=== PATIENT | male | born 1945 | race Caucasian/White ===

== ENCOUNTER 2021-05-03 18:57 | Emergency (ER) | payer MEDICARE, SELFPAY ==
--- NOTE | ~2021-05-03 | XR_ITS ---
EXAMINATION: XR CHEST CLINICAL INFORMATION: Cough. COMPARISON: Chest radiograph dated from 11/10/2018. TECHNIQUE: 2 views of the chest were obtained. FINDINGS: Normal appearance of the cardiomediastinal silhouette. Mild asymmetric elevation of the left hemidiaphragm with subsegmental atelectasis in the left lower lobe. No focal infiltrates. No pleural effusion or pneumothorax. No acute osseous abnormalities. XR/XR chest 2V IMPRESSION: Mild subsegmental atelectasis in the left lower lobe. Otherwise, clear lungs.
--- NOTE | 2021-05-03 18:58 | ECG_ITS ---
Test Reason : DIZZINESS Blood Pressure : / mmHG Vent. Rate : 048 BPM Atrial Rate : 048 BPM P-R Int : 158 ms QRS Dur : 094 ms QT Int : 466 ms P-R-T Axes : 028 037 040 degrees QTc Int : 416 ms Poor data quality, interpretation may be adversely affected Sinus bradycardia Cannot rule out Anterior infarct , age undetermined Abnormal ECG When compared with ECG of 10-NOV-2018 21:24, No significant change was found Referred By: Lisa Mast Electronically Signed By:
[2021-05-03 19:03] VITALS: BP 177/67; PULSE 52; RESP 16; TEMP 36; O2SAT 98; BMI 26.2
[2021-05-03 19:33] LABS: MANUAL DIFF FLAG NO
[2021-05-03 19:35] LABS: Basophils Absolute Auto 0.1 X10*3/uL (0.0-0.2); Basophils Percent Auto 0.8 % (0-2); Eosinophils Absolute Auto 0.1 X10*3/uL (0.0-0.4); Eosinophils Percent Auto 1.2 % (0-4); Hematocrit 42.4 % (42.0-52.0); Hemoglobin 14.5 g/dl (14.0-18.0); Imm Gran Abs Auto 0.01 X10*3/uL (0.00-0.03); Imm Gran Pct Auto 0.1 % (0.0-0.4); Lymphocytes Absolute Auto 4.3 X10*3/uL (1.2-4.9); Lymphocytes Percent Auto 46.6 % (20-40); Mean Corpuscular HGB Conc 34.2 g/dl (31.0-36.0); Mean Corpuscular Hemoglobin 29.4 pg (27.0-33.0); Mean Platelet Volume 10.5 fL (9.4-12.4); Monocytes Absolute Auto 0.8 X10*3/uL (0.1-1.2); Monocytes Percent Auto 8.3 % (2-11); Platelet Count 250 X10*3/uL (160-400); Red Blood Count 4.93 X10*6/uL (4.60-5.80); Red Cell Distribution Width 12.3 % (11.0-16.0); White Blood Count 9.2 X10*3/uL (4.8-10.8)
[2021-05-03 19:49] LABS: Alanine Aminotransferase 27 U/L (0-40); Alkaline Phosphatase 67 U/L (39-117); Anion Gap 11 (12-20); Aspartate Amino Transferase 21 U/L (5-37); Bilirubin Total 0.5 mg/dL (0.0-1.0); Blood Urea Nitrogen 19 mg/dL (9-16); Calcium 9.7 mg/dL (8.4-10.2); Carbon Dioxide 25 mmol/L (22-29); Chloride 106 mmol/L (96-108); Estimated Glomerular Filt Rate > 60; Glucose Random 138 mg/dL (60-115); Potassium 3.9 mmol/L (3.3-5.1); Sodium 138 mmol/L (135-145); Total Protein 6.9 g/dL (6.5-8.0)
[2021-05-03 19:55] LABS: Troponin-I High Sensitivity < 3.5 ng/L (<3.5-35.0)
[2021-05-03 20:43] VITALS: BP 154/68; PULSE 49; PULSE 51; RESP 14; TEMP 36.5; O2SAT 95
[2021-05-03 20:44] VITALS: BP 138/69; PULSE 52
[2021-05-03 20:45] VITALS: BP 145/77; PULSE 59
--- NOTE | 2021-05-03 21:01 | PC.NURSE ---
pt a&ox3, vss, pt passed swallow screen, orthostatic bp completed with tech, will continue to monitor.
[2021-05-03 21:08] LABS: Thyroid Stimulating Hormone 3.58 uIU/mL (0.32-4.0)
[2021-05-03 21:54] LABS: COVID-19 Test Negative (Negative)
[2021-05-03 22:00] VITALS: BP 176/75; PULSE 49; RESP 20; TEMP 36.4; O2SAT 100
--- NOTE | 2021-05-03 22:16 | ED_ITS ---
HPI - General Adult General Chief complaint: Dizziness Stated complaint: feeling clammy, cold Time Seen by Provider: 05/03/21 18:58 Source: patient Mode of arrival: ambulatory History of Present Illness HPI narrative: This is a 75-year-old male with history gout who presents with onset this morning a warm, flushed feeling that was then followed by significant perspiration on his arms and upper torso. This was not associated with nausea, shortness of breath, chest pain/palpitations, back pain, perioral tingling, but patient reports that he had a headache without visual/speech disturbances and is unsure whether not he experienced any ear ringing. Patient states that he felt unsteady but this occurred while he was sitting at the computer looking up things on the Internet. He then states he took a Claritin, slept for 4-1/2 hours, and got up and felt well, and a it is dinner. He states that he had a recurrence of the symptoms while watching TV. He otherwise denies any night sweats, unexplained weight loss, abdominal discomfort, new cough, and he states he is fully vaccinated against COVID-19. Related Data Allergies Allergy/AdvReac Type Severity Reaction Status Date / Time lactose [LACTOSE] Allergy Unknown DIARRHEA Verified 05/03/21 19:02 rosuvastatin [From AdvReac Unknown PANCREATITI Verified 05/03/21 19:02 CRESTOR] S Review of Systems Verdana 4l Review of Systems: Verdana 4d Pertinent positives and Verdana 4d negatives as stated in HPI 10 point review of systems is otherwise negative. Verdana 4d PMFSH Past Medical History Source: nursing notes reviewed Social History Social History Alcohol intake: never Patient Tobacco Use Status: Never used Tobacco Substance Use Type: Marijuana Substance Use Frequency: Occasionally Substance Use Frequency Other:: Uses medical marijuana edibles for headaches. Advance Directives: No Advance Directives Information Provided: Yes Physical Exam Verdana 4l Vital Signs: Verdana 4d Verdana 4d Vital Signs: Verdana 4d Verdana 4Bd Last Vital Signs Verdana 4d Online Merchandising Manager New 4d Online Merchandising Manager New 4d Temp 97.5 F 05/03/21 22:00 Online Merchandising Manager New 4d Pulse 49 L 05/03/21 22:00 Online Merchandising Manager New 4d Resp 20 05/03/21 22:00 BP 176/75 H 05/03/21 22:00 Pulse Ox 100 05/03/21 22:00 BMI result Body Mass Index 26.2 VITAL SIGNS: Reviewed. GENERAL: Well developed, well nourished, in no acute distress. HEAD: Normocephalic/atraumatic EYES: PERRLA, EOMI intact without pain, no nystagmus EARS: Ext canals without abnormality, TMs non-bulging and non-erythematous NOSE: Nares patent bilateral OROPHARYNX: no oral lesions noted, posterior pharynx clear NECK: Supple, no adenopathy LUNGS: Normal breath sounds. No adventitious sounds or accessory muscle use. SpO2<100> CARDIOVASCULAR: Regular rate and rhythm without noted murmurs, no JVD or lower extremity edema. ABDOMEN: Soft, non-tender, non-distended with bowel sounds. MUSCULOSKELETAL: No tenderness, deformities, or effusions noted on gross inspection. EXTREMITIES: No cyanosis, clubbing or edema. SKIN: Inspection of the skin reveals no rashes NEUROLOGIC: Alert and oriented x 4. Strength and sensation to light touch were grossly intact x 4, otherwise nonfocal Course Course Course Narrative: 75-year-old male with history and clinical presentation suggestive of vasomotor- like symptoms as patient was not exerting himself/there was no position change, and there is no evidence of infection/anemia. Orthostatics are negative, EKG does not show obvious arrhythmia. Review of all investigations otherwise negative for acute findings. No clinical concern for neurologic dysfunction. All this was discussed extensively with the patient at bedside and he was strongly encouraged to follow-up with his primary care provider for further workup/investigations as indicated. Medical Decision Making Lab Data Result diagrams: 05/03/21 19:28 05/03/21 19:28 Labs: Lab Results 05/03/21 05/03/21 05/03/21 Range/Units 19:28 19:28 19:28 WBC 9.2 (4.8-10.8) X10*3/uL RBC 4.93 (4.60-5.80) X10*6/uL Hgb 14.5 (14.0-18.0) g/dl Hct 42.4 (42.0-52.0) % MCV 86.0 (80.0-98.0) fL MCH 29.4 (27.0-33.0) pg MCHC 34.2 (31.0-36.0) g/dl RDW 12.3 (11.0-16.0) % Plt Count 250 (160-400) X10*3/uL MPV 10.5 (9.4-12.4) fL Immature Gran % (Auto) 0.1 (0.0-0.4) % Neut % (Auto) 43.0 L (45-73) % Lymph % (Auto) 46.6 H (20-40) % [place] % (Auto) 8.3 (2-11) % Eos % (Auto) 1.2 (0-4) % Baso % (Auto) 0.8 (0-2) % Lymph # (Auto) 4.3 (1.2-4.9) X10*3/uL [place] # (Auto) 0.8 (0.1-1.2) X10*3/uL Eos # (Auto) 0.1 (0.0-0.4) X10*3/uL Baso # (Auto) 0.1 (0.0-0.2) X10*3/uL Abs Immat Gran (auto) 0.01 (0.00-0.03) X10*3/uL Absolute Neuts (auto) 4.0 (2.0-8.3) x10*3/uL Absolute Nucleated RBC 0.000 (0.0-0.012) X10*3/uL Nucleated RBC % (auto) 0.0 (0.0-0.2) /100WBC Sodium 138 (135-145) mmol/L Potassium 3.9 (3.3-5.1) mmol/L Chloride 106 (96-108) mmol/L Carbon Dioxide 25 (22-29) mmol/L Anion Gap 11 L (12-20) BUN 19 H (9-16) mg/dL Creatinine 0.88 (0.5-1.4) mg/dL Estim Creat Clear Calc 76.0 Estimated GFR > 60 Random Glucose 138 H (60-115) mg/dL Calcium 9.7 (8.4-10.2) mg/dL Total Bilirubin 0.5 (0.0-1.0) mg/dL AST 21 (5-37) U/L ALT 27 (0-40) U/L Alkaline Phosphatase 67 (39-117) U/L Troponin I High Sens < 3.5 (<3.5-35.0) ng/L Total Protein 6.9 (6.5-8.0) g/dL Albumin 4.0 (3.5-5.0) g/dL TSH 3.58 (0.32-4.0) uIU/mL COVID-19 (JESSIE) (Negative) COVID-19 Clin Com 05/03/21 Range/Units 21:34 WBC (4.8-10.8) X10*3/uL RBC (4.60-5.80) X10*6/uL Hgb (14.0-18.0) g/dl Hct (42.0-52.0) % MCV (80.0-98.0) fL MCH (27.0-33.0) pg MCHC (31.0-36.0) g/dl RDW (11.0-16.0) % Plt Count (160-400) X10*3/uL MPV (9.4-12.4) fL Immature Gran % (Auto) (0.0-0.4) % Neut % (Auto) (45-73) % Lymph % (Auto) (20-40) % [place] % (Auto) (2-11) % Eos % (Auto) (0-4) % Baso % (Auto) (0-2) % Lymph # (Auto) (1.2-4.9) X10*3/uL [place] # (Auto) (0.1-1.2) X10*3/uL Eos # (Auto) (0.0-0.4) X10*3/uL Baso # (Auto) (0.0-0.2) X10*3/uL Abs Immat Gran (auto) (0.00-0.03) X10*3/uL Absolute Neuts (auto) (2.0-8.3) x10*3/uL Absolute Nucleated RBC (0.0-0.012) X10*3/uL Nucleated RBC % (auto) (0.0-0.2) /100WBC Sodium (135-145) mmol/L Potassium (3.3-5.1) mmol/L Chloride (96-108) mmol/L Carbon Dioxide (22-29) mmol/L Anion Gap (12-20) BUN (9-16) mg/dL Creatinine (0.5-1.4) mg/dL Estim Creat Clear Calc Estimated GFR Random Glucose (60-115) mg/dL Calcium (8.4-10.2) mg/dL Total Bilirubin (0.0-1.0) mg/dL AST (5-37) U/L ALT (0-40) U/L Alkaline Phosphatase (39-117) U/L Troponin I High Sens (<3.5-35.0) ng/L Total Protein (6.5-8.0) g/dL Albumin (3.5-5.0) g/dL TSH (0.32-4.0) uIU/mL COVID-19 (JESSIE) Negative (Negative) COVID-19 Clin Com See Note ECG Data Attestation: I personally reviewed and interpreted this ECG as follows: Interpretation: Sinus bradycardia, HR-47, no STEMI, LA/QRS/QTC are within normal limits Discharge Plan Discharge Clinical Impression: Vasomotor flushing, Vasomotor headache Patient Disposition: Home, Self-Care Additional Instructions: Follow-up with your primary care provider. Return to the ER for worsening symptoms. Referrals: Ree Cordero MD [Primary Care Provider] - 2 days
--- NOTE | 2021-05-03 22:18 | PC.NURSE ---
pt a&ox3, urine sample collected, vss.
[2021-05-03 22:22] LABS: Appearance Urine CLEAR; Color Urine YELLOW; Glucose Urine UA NEG (NEG); Leukocyte Esterase Urine NEG (NEG); Nitrite Urine NEG (NEG); PH 5.5 (5.0-8.0); Specific Gravity - Urine >= 1.030 (1.005-1.025); Urine Blood NEG (NEG); Urine Ketones NEG (NEG); Urine Protein NEG (NEG-TRACE)
[2021-05-03 22:28] LABS: RBC Urine 0 /HPF (0); WBC Urine 0 /HPF (0-4)
== END 2021-05-03 22:40 | disposition home or self-care (01) ==
PROVIDERS: Emergency Provider Student in an Organized Health Care Education/Training Program; PCP Family Medicine
DX: R51.9 Headache, unspecified (principal); R23.2 Flushing; Z20.822 Contact with and (suspected) exposure to COVID-19; F12.90 Cannabis use, unspecified, uncomplicated
CPT/HCPCS: 36415; 71046; 80053; 81001; 84443; 84484; 85025; 87635; 93005; 99283; 99285

== ENCOUNTER 2023-12-22 07:54 | Day surgery (SDC) | payer MEDICARE, SELFPAY ==
[2023-12-18 08:27] VITALS: BMI 26.3
[2023-12-22] MEDS: Tetracaine HCl/PF 0.5% Oph Sol 4 ML DROPS 1 DROP EYE-LEFT (08:22)
[2023-12-22] MEDS: Cyclopentolate 1 % Ophth Sol 2 ML DRPBTL 1 DROP EYE-LEFT ×3 (08:23→08:36)
[2023-12-22] MEDS: Ketorolac Tromethamine 0.5% Op 10 ML DROPS 1 DROP EYE-LEFT ×3 (08:23→08:35)
[2023-12-22] MEDS: Tropicamide 1 % Ophth Sol 3 ML BTL 1 DROP EYE-LEFT ×3 (08:23→08:36)
[2023-12-22] MEDS: Phenylephrine HCL 2.5% Oph SoL 2 ML BOTTLE 1 DROP EYE-LEFT ×3 (08:23→08:35)
[2023-12-22] MEDS: Lactated Ringers 500 ML 50 ML IV (08:24)
[2023-12-22 08:38] VITALS: BP 144/78; PULSE 58; RESP 18; TEMP 36.7; O2SAT 97
--- NOTE | 2023-12-22 08:55 | HO.ANESPROP2 ---
Documented by User: Janet Guo NP 12/18/23 14:29 HPI - Anesthesia Eval Consult details Narrative: 78yo M for Left Cataract Multifocal with IOL Insertion No previous cataract on record PMFSH Past Medical History Medical History Elevated blood pressure reading without diagnosis of hypertension Family history of malignant melanoma Nocturia History of headache IBS (irritable bowel syndrome) Cyst of oral soft tissue Migraine Anemia Chronic tophaceous gout Gout Hyperlipidemia Surgical History Surgical History H/O colonoscopy Social History Social History Are you a primary primary care nurse practitioner to a significant other at home: No Do you presently have visiting nurse or other home services: No Alcohol intake: never Patient Tobacco Use Status: Former Tobacco user Use of substances other than those prescribed or required for medical reasons: No Substance Use Type: Marijuana Are you DNR?: No Advance Directives: No Advance Directives Information Provided: Yes Advance Directives on File: No Recently lost weight without trying: No Nutrition Risks: No Nutritional Risk Meds Allergies Allergy/AdvReac Type Severity Reaction Status Date / Time lactose [LACTOSE] Allergy Unknown DIARRHEA Verified 12/22/23 08:40 acetazolamide Allergy Headache Verified 12/22/23 08:40 allopurinol Allergy Diarrhea Verified 12/22/23 08:40 amlodipine Allergy Swelling Verified 12/22/23 08:40 influenza virus vaccine, Allergy Fever Verified 12/22/23 08:40 specific lisinopril Allergy Unknown Verified 12/22/23 08:40 Sulfa (Sulfonamide Allergy Unknown Verified 12/22/23 08:40 Antibiotics) Home Medications ?Medication ?Instructions ?Recorded ?Confirmed ?Last Taken ?Type acidophilus 100 million 1 cap PO DAILY 12/18/23 12/18/23 Unknown History cell-pectin, citrus 10 mg capsule ascorbic acid (vitamin C) 100 mg 100 mg PO DAILY 12/18/23 12/18/23 Unknown History tablet (Vitamin C) calcium carbonate (Tums) 200 mg PO BID 12/18/23 12/18/23 Unknown History cholecalciferol (vitamin D3) 25 25 mcg PO DAILY 12/18/23 12/18/23 Unknown History mcg (1,000 unit) capsule (Vitamin D3) coenzyme Q10 10 mg capsule (Co 10 mg PO TID 12/18/23 12/18/23 Unknown History Q-10) cyanocobalamin (vitamin B-12) 50 50 mcg PO DAILY 12/18/23 12/18/23 Unknown History mcg tablet (Vitamin B-12) flaxseed oil 1,000 mg capsule 1,000 mg PO DAILY 12/18/23 12/18/23 Unknown History glucosamine sulf dipot cap PO 12/18/23 Unknown History chlr,msm,chond 550 mg-C 30 mg-melinda 1 mg capsule (Glucosamine Chondroitin) ibuprofen 600 mg tablet 600 mg PO Q8H PRN Pain 12/18/23 12/18/23 Unknown History omega 9-ifl-vth-fish oil 1,000 mg 1 cap PO DAILY 12/18/23 12/18/23 Unknown History (120 mg-180 mg) capsule (Fish Oil) red yeast rice 600 mg capsule 600 mg PO DAILY 12/18/23 12/18/23 Unknown History colchicine 0.6 mg tablet 0.6 mg PO DAILY 12/22/23 12/22/23 12/22/23 History Exam Height,Weight and Vital Signs: Height 5 ft 9 in Weight 80.739 kg Assessment and Plan Assessment Anesthesia Assessment: Chart Reviewed Documented by User: Charline Kate DO 12/22/23 08:57 HPI - Anesthesia Eval Consult details Narrative: 78yo M for Left Cataract Multifocal with IOL Insertion No previous cataract on record 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 PMFSH Past Medical History Medical History Elevated blood pressure reading without diagnosis of hypertension Family history of malignant melanoma Nocturia History of headache IBS (irritable bowel syndrome) Cyst of oral soft tissue Migraine Anemia Chronic tophaceous gout Gout Hyperlipidemia Family History Family history of problems with anesthesia: No Surgical History Surgical History H/O colonoscopy History of Problems with Anesthesia: No Social History Social History Are you a primary primary care nurse practitioner to a significant other at home: No Do you presently have visiting nurse or other home services: No Alcohol intake: never Patient Tobacco Use Status: Former Tobacco user Use of substances other than those prescribed or required for medical reasons: No Substance Use Type: Marijuana Are you DNR?: No Advance Directives: No Advance Directives Information Provided: Yes Advance Directives on File: No Recently lost weight without trying: No Nutrition Risks: No Nutritional Risk Meds Allergies Allergy/AdvReac Type Severity Reaction Status Date / Time lactose [LACTOSE] Allergy Unknown DIARRHEA Verified 12/22/23 08:40 acetazolamide Allergy Headache Verified 12/22/23 08:40 allopurinol Allergy Diarrhea Verified 12/22/23 08:40 amlodipine Allergy Swelling Verified 12/22/23 08:40 influenza virus vaccine, Allergy Fever Verified 12/22/23 08:40 specific lisinopril Allergy Unknown Verified 12/22/23 08:40 Sulfa (Sulfonamide Allergy Unknown Verified 12/22/23 08:40 Antibiotics) Home Medications ?Medication ?Instructions ?Recorded ?Confirmed ?Last Taken ?Type acidophilus 100 million 1 cap PO DAILY 12/18/23 12/18/23 Unknown History cell-pectin, citrus 10 mg capsule ascorbic acid (vitamin C) 100 mg 100 mg PO DAILY 12/18/23 12/18/23 Unknown History tablet (Vitamin C) calcium carbonate (Tums) 200 mg PO BID 12/18/23 12/18/23 Unknown History cholecalciferol (vitamin D3) 25 25 mcg PO DAILY 12/18/23 12/18/23 Unknown History mcg (1,000 unit) capsule (Vitamin D3) coenzyme Q10 10 mg capsule (Co 10 mg PO TID 12/18/23 12/18/23 Unknown History Q-10) cyanocobalamin (vitamin B-12) 50 50 mcg PO DAILY 12/18/23 12/18/23 Unknown History mcg tablet (Vitamin B-12) flaxseed oil 1,000 mg capsule 1,000 mg PO DAILY 12/18/23 12/18/23 Unknown History glucosamine sulf dipot cap PO 12/18/23 Unknown History chlr,msm,chond 550 mg-C 30 mg-melinda 1 mg capsule (Glucosamine Chondroitin) ibuprofen 600 mg tablet 600 mg PO Q8H PRN Pain 12/18/23 12/18/23 Unknown History omega 5-ytm-jaj-fish oil 1,000 mg 1 cap PO DAILY 12/18/23 12/18/23 Unknown History (120 mg-180 mg) capsule (Fish Oil) red yeast rice 600 mg capsule 600 mg PO DAILY 12/18/23 12/18/23 Unknown History colchicine 0.6 mg tablet 0.6 mg PO DAILY 12/22/23 12/22/23 12/22/23 History Exam Exam Date and Time: 12/22/23 0850 Height,Weight and Vital Signs: Height 5 ft 9 in Weight 80.739 kg Vital Signs Temperature 98.1 F 12/22/23 08:38 Pulse Rate 58 12/22/23 08:38 Respiratory Rate 18 12/22/23 08:38 Blood Pressure 144/78 H 12/22/23 08:38 Pulse Oximetry 97 12/22/23 08:38 Oxygen Delivery Method Room Air 12/22/23 08:38 Temperature 98.1 F 12/22/23 08:38 Pulse Rate 58 12/22/23 08:38 Respiratory Rate 18 12/22/23 08:38 Blood Pressure 144/78 H 12/22/23 08:38 Pulse Oximetry 97 12/22/23 08:38 Oxygen Delivery Method Room Air 12/22/23 08:38 Airway Mallampati Class: I TM Dist: >3cm Neck ROM: Full Loose/Missing/Broken Teeth: Yes (some missing teeth but nothing loose or broken) Heart: S1S2 Lungs: CTAB Assessment and Plan Assessment Anesthesia Assessment: Anesthesia Plan Discussed and Chart Reviewed Final Anesthetic Review Family History of Problems with Anesthesia: No History of Problems with Anesthesia: No NPO: Yes ASA Class: II Final Preanesthetic Review: No Changes in Pt Med Stat, Meds/Allgs Chart Reviewed, Consent Obtained/Reviewed and Anes Risks/Benef Reviewed Patient Risk: Low Procedure Risk: Low Anesthetic Plan Anesthetic Plan: MAC: and Agree w/ Assess. and Plan Disposition: Standard PACU
--- NOTE | 2023-12-22 09:14 | MHC.SHP ---
Pre-Procedural Eval Section A - 24 Hr Update-Section A only Date of Service: 12/22/23 The patient is an INPATIENT: No Changes since office visit: No Cold of Flu in the past 2 weeks, No New Medical Problems, No Changes in Medication and No Patient answered all questions The patient has been examined within 24 hours of the surgical procedure. The History & Physical has been completed within 30 days and I have reviewed it.: Yes Section B - Complete if H&P > 30 days Chief Complaint: Age-related nuclear cataract, left eye Allergies: Allergies Allergy/AdvReac Type Severity Reaction Status Date / Time lactose [LACTOSE] Allergy Unknown DIARRHEA Verified 12/22/23 08:40 acetazolamide Allergy Headache Verified 12/22/23 08:40 allopurinol Allergy Diarrhea Verified 12/22/23 08:40 amlodipine Allergy Swelling Verified 12/22/23 08:40 influenza virus vaccine, Allergy Fever Verified 12/22/23 08:40 specific lisinopril Allergy Unknown Verified 12/22/23 08:40 Sulfa (Sulfonamide Allergy Unknown Verified 12/22/23 08:40 Antibiotics) Plan Diagnosis/Plan: Unchanged I have reviewed the history and physical and performed a pertinent physical examination on my patient. No changes have occurred unless specified. Time Spent With Patient Time: Total time managing care of this patient today ____ minutes.
--- NOTE | 2023-12-22 09:14 | HO.PNOPHT ---
Ophthalmology Procedure Procedure Date of Service: 12/22/23 Ophthalmology Viscoelastic: Healon Duet Dual Pack Pro Ophthalmology Lenses: Other ([id number] 14.5) Procedure Notes: PREOPERATIVE DIAGNOSIS: Decreased visual acuity left eye secondary to cataract POSTOPERATIVE DIAGNOSIS: Same PROCEDURE: Left cataract extraction with intraocular lens insertion SURGEON: Andres Mendieta M.D. ANESTHESIA: Topical/MAC ESTIMATED BLOOD LOSS: None COMPLICATIONS: None After obtaining informed consent, the patient was brought to the operation room suite and placed in the supine position. After adequate sedation per anesthesia, topical drops of Tetracaine were given to the left eye. The eye was then prepped and draped in the usual sterile fashion. The operating room microscope was then positioned over the operative eye and a lid speculum placed. A paracentesis was created. Viscoelastic was then instilled into the anterior chamber. A three plane incision was then created temporally, utilizing a 2.85 mm keratome. Capsulotomy forceps were then utilized to create a circular tear capsulotomy. Hydrodissection and hydrodelineation were carried out until adequate mobilization of the nucleus occurred. Phacoemulsification was then utilized to remove the dense central nucleus followed by removal of the cortical material utilizing the automated aspiration irrigation unit. Viscoat elastic was instilled into the posterior capsular bag followed by placement of a posterior chamber intraocular lens without difficulty. The residual Viscoat elastic was then removed utilizing the automated IA machine. The wound was check and found to be watertight. The patient tolerated the procedure well and the lid speculum was removed. Intracameral injection of Vigamox 0.1 mL followed by a subtenon injection of Kenalog-40 0.2 mL were administered. The patient will be seen in the a.m.
[2023-12-22 10:01] VITALS: BP 155/66; PULSE 54; RESP 18; TEMP 36.2; O2SAT 98
== END 2023-12-22 10:03 | disposition home or self-care (01) ==
PROVIDERS: PCP Family Medicine; Visit Provider Ophthalmology
PROC: (CPT 66984; principal; 2023-12-22 09:30)
DX: H25.12 Age-related nuclear cataract, left eye (principal); H54.7 Unspecified visual loss; H43.393 Other vitreous opacities, bilateral; D64.9 Anemia, unspecified; M1A.9XX1 Chronic gout, unspecified, with tophus (tophi); E78.5 Hyperlipidemia, unspecified; R03.0 Elevated blood-pressure reading, without diagnosis of hypertension; G43.909 Migraine, unspecified, not intractable, without status migrainosus; Z79.1 Long term (current) use of non-steroidal anti-inflammatories (NSAID); Z79.899 Other long term (current) drug therapy; Z88.8 Allergy status to other drugs, medicaments and biological substances; Z88.2 Allergy status to sulfonamides; Z88.7 Allergy status to serum and vaccine
CPT/HCPCS: 66984; J2250; J3301; V2787

== ENCOUNTER 2024-01-05 08:35 | Day surgery (SDC) | payer MEDICARE, SELFPAY ==
[2023-12-18 08:35] VITALS: BMI 26.3
--- NOTE | 2024-01-01 14:27 | P.CONAN_ITS ---
HPI - Anesthesia Eval Consult details Narrative: 78yo M for Right Cataract Multifocal with IOL Insertion Left eye 11/2023: No meds recorded PMFSH Past Medical History Medical History Elevated blood pressure reading without diagnosis of hypertension Family history of malignant melanoma Nocturia History of headache IBS (irritable bowel syndrome) Cyst of oral soft tissue Migraine Anemia Chronic tophaceous gout Gout Hyperlipidemia Family History Family history of problems with anesthesia: No Surgical History Surgical History H/O colonoscopy History of Problems with Anesthesia: No Social History Social History Are you a primary career development coordinator/teacher to a significant other at home: No Do you presently have visiting nurse or other home services: No Alcohol intake: never Patient Tobacco Use Status: Former Tobacco user Use of substances other than those prescribed or required for medical reasons: No Substance Use Type: Marijuana Are you DNR?: No Advance Directives: No Advance Directives Information Provided: Yes Advance Directives on File: No Recently lost weight without trying: No Eating poorly because of decreased appetite: No Nutrition Risks: No Nutritional Risk Meds Allergies Allergy/AdvReac Type Severity Reaction Status Date / Time lactose [LACTOSE] Allergy Unknown DIARRHEA Verified 12/22/23 08:40 acetazolamide Allergy Headache Verified 12/22/23 08:40 allopurinol Allergy Diarrhea Verified 12/22/23 08:40 amlodipine Allergy Swelling Verified 12/22/23 08:40 influenza virus vaccine, Allergy Fever Verified 12/22/23 08:40 specific lisinopril Allergy Unknown Verified 12/22/23 08:40 Sulfa (Sulfonamide Allergy Unknown Verified 12/22/23 08:40 Antibiotics) Home Medications ?Medication ?Instructions ?Recorded ?Confirmed ?Last Taken ?Type acidophilus 100 million 1 cap PO DAILY 12/18/23 12/18/23 Unknown History cell-pectin, citrus 10 mg capsule ascorbic acid (vitamin C) 100 mg 100 mg PO DAILY 12/18/23 12/18/23 Unknown History tablet (Vitamin C) calcium carbonate (Tums) 200 mg PO BID 12/18/23 12/18/23 Unknown History cholecalciferol (vitamin D3) 25 25 mcg PO DAILY 12/18/23 12/18/23 Unknown History mcg (1,000 unit) capsule (Vitamin D3) coenzyme Q10 10 mg capsule (Co 10 mg PO TID 12/18/23 12/18/23 Unknown History Q-10) cyanocobalamin (vitamin B-12) 50 50 mcg PO DAILY 12/18/23 12/18/23 Unknown History mcg tablet (Vitamin B-12) flaxseed oil 1,000 mg capsule 1,000 mg PO DAILY 12/18/23 12/18/23 Unknown History glucosamine sulf dipot cap PO 12/18/23 Unknown History chlr,msm,chond 550 mg-C 30 mg-melinda 1 mg capsule (Glucosamine Chondroitin) ibuprofen 600 mg tablet 600 mg PO Q8H PRN Pain 12/18/23 12/18/23 Unknown History omega 4-tlm-nps-fish oil 1,000 mg 1 cap PO DAILY 12/18/23 12/18/23 Unknown History (120 mg-180 mg) capsule (Fish Oil) red yeast rice 600 mg capsule 600 mg PO DAILY 12/18/23 12/18/23 Unknown History colchicine 0.6 mg tablet 0.6 mg PO DAILY 12/22/23 12/22/23 01/05/24 History Exam Height,Weight and Vital Signs: Height 5 ft 9 in Weight 80.739 kg Assessment and Plan Assessment Anesthesia Assessment: Chart Reviewed Final Anesthetic Review Family History of Problems with Anesthesia: No History of Problems with Anesthesia: No
[2024-01-05 09:37] VITALS: BP 183/69; PULSE 84; RESP 18; TEMP 36.4; O2SAT 99; BMI 26.4
[2024-01-05] MEDS: Tropicamide 1 % Ophth Sol 3 ML BTL 1 DROP EYE-RIGHT ×3 (09:43→09:46)
[2024-01-05] MEDS: Phenylephrine HCL 2.5% Oph SoL 2 ML BOTTLE 1 DROP EYE-RIGHT ×3 (09:43→09:45)
[2024-01-05] MEDS: Tetracaine HCl/PF 0.5% Oph Sol 4 ML DROPS 1 DROP EYE-RIGHT (09:43)
[2024-01-05] MEDS: Ketorolac Tromethamine 0.5% Op 10 ML DROPS 1 DROP EYE-RIGHT ×3 (09:43→09:46)
[2024-01-05] MEDS: Cyclopentolate 1 % Ophth Sol 2 ML DRPBTL 1 DROP EYE-RIGHT ×3 (09:45→09:47)
--- NOTE | 2024-01-05 11:06 | MHC.SHP ---
Pre-Procedural Eval Section A - 24 Hr Update-Section A only Date of Service: 01/05/24 The patient is an INPATIENT: No Changes since office visit: No Cold of Flu in the past 2 weeks, No New Medical Problems, No Changes in Medication and No Patient answered all questions The patient has been examined within 24 hours of the surgical procedure. The History & Physical has been completed within 30 days and I have reviewed it.: Yes Section B - Complete if H&P > 30 days Chief Complaint: Age-related nuclear cataract, right eye Allergies: Allergies Allergy/AdvReac Type Severity Reaction Status Date / Time lactose [LACTOSE] Allergy Unknown DIARRHEA Verified 12/22/23 08:40 acetazolamide Allergy Headache Verified 12/22/23 08:40 allopurinol Allergy Diarrhea Verified 12/22/23 08:40 amlodipine Allergy Swelling Verified 12/22/23 08:40 influenza virus vaccine, Allergy Fever Verified 12/22/23 08:40 specific lisinopril Allergy Unknown Verified 12/22/23 08:40 Sulfa (Sulfonamide Allergy Unknown Verified 12/22/23 08:40 Antibiotics) Plan Diagnosis/Plan: Unchanged I have reviewed the history and physical and performed a pertinent physical examination on my patient. No changes have occurred unless specified. Time Spent With Patient Time: Total time managing care of this patient today ____ minutes.
--- NOTE | 2024-01-05 11:06 | HO.PNOPHT ---
Ophthalmology Procedure Procedure Date of Service: 01/05/24 Ophthalmology Viscoelastic: Healon Duet Dual Pack Pro Ophthalmology Lenses: Other ([id number]) Procedure Notes: PREOPERATIVE DIAGNOSIS: Decreased visual acuity right eye secondary to cataract POSTOPERATIVE DIAGNOSIS: Same PROCEDURE: Right cataract extraction with multifocal toric intraocular lens insertion axis 34 degrees SURGEON: Andres Mendieta M.D. ANESTHESIA: Topical ESTIMATED BLOOD LOSS: None COMPLICATIONS: None After obtaining informed consent, the patient was brought to the operating room suite and placed in the supine position. After adequate sedation per anesthesia, topical drops of Tetracaine were given to the right eye. The eye was then prepped and draped in the usual sterile fashion. The operating room microscope was then positioned over the operative eye and a lid speculum placed. A paracentesis was created. Viscoelastic was then instilled into the anterior chamber. A three plane incision was then created temporally, utilizing a 2.85 mm keratome. Capsulotomy forceps were then utilized to create a circular tear capsulotomy. Hydrodissection and hydrodelineation were carried out until adequate mobilization of the nucleus occurred. Phacoemulsification was then utilized to remove the dense central nucleus followed by removal of the cortical material utilizing the automated aspiration irrigation unit. Viscoelastic was instilled into the posterior capsular bag followed by placement of a posterior chamber intraocular lMultifocal toric ens axis 84 degrees without difficulty. The residual Viscoelastic was then removed utilizing the automated IA machine. The wound was checked and found to be watertight. The patient tolerated the procedure well and the lid speculum was removed. Intracameral injection of Vigamox 0.1 mL followed by a subtenon injection of Kenalog-40 0.2 mL were administered. The patient will be seen in the a.m.
[2024-01-05 11:43] VITALS: BP 144/68; PULSE 57; RESP 16; TEMP 36.1; O2SAT 98
== END 2024-01-05 11:45 | disposition home or self-care (01) ==
PROVIDERS: PCP Family Medicine; Visit Provider Ophthalmology
PROC: (CPT 66984; principal; 2024-01-05 11:00)
DX: H25.11 Age-related nuclear cataract, right eye (principal); H54.7 Unspecified visual loss; H43.393 Other vitreous opacities, bilateral; D64.9 Anemia, unspecified; E78.5 Hyperlipidemia, unspecified; R03.0 Elevated blood-pressure reading, without diagnosis of hypertension; G43.909 Migraine, unspecified, not intractable, without status migrainosus; M1A.9XX0 Chronic gout, unspecified, without tophus (tophi); Z79.899 Other long term (current) drug therapy; Z88.8 Allergy status to other drugs, medicaments and biological substances; Z88.2 Allergy status to sulfonamides; Z88.7 Allergy status to serum and vaccine
CPT/HCPCS: 66984; J2003; J3301; V2787

== ENCOUNTER 2024-03-30 12:34 | Outpatient (AMB) | payer MEDICARE, SELFPAY ==
--- NOTE | 2024-03-30 12:41 | A.OFFVIS_ITS ---
Vital Signs 03/30/24 12:42 Height 5 ft 9 in Weight 180 lb 12.465 oz BMI 26.7 BP 160/82 H Blood Pressure Location Lt brachial Position Sitting Pulse 61 Pulse Source Pulse Oximeter Pulse Oximetry (%) 99 Oxygen Delivery Method Room Air Intake Visit Reasons: RA Intake Note: Patient presents today for follow up on gout. Allergies lactose [LACTOSE] Allergy (Unknown, Verified 03/30/24 12:47) DIARRHEA acetazolamide Allergy (Verified 03/30/24 12:47) Headache allopurinol Allergy (Verified 03/30/24 12:47) Diarrhea amlodipine Allergy (Verified 03/30/24 12:47) Swelling influenza virus vaccine, specific Allergy (Verified 03/30/24 12:47) Fever lisinopril Allergy (Verified 03/30/24 12:47) Unknown Sulfa (Sulfonamide Antibiotics) Allergy (Verified 03/30/24 12:47) Unknown HPI HPI RA: Details: History of gout. HPI Comments Details: He has not had a gout episode. Foot pain is resolved. He continued to do exercise learned from PT regularly. [facility] Medical History (Updated 04/01/24 @ 08:49 by Tunde Lopez MD) Elevated blood pressure reading without diagnosis of hypertension Family history of malignant melanoma Nocturia History of headache IBS (irritable bowel syndrome) Cyst of oral soft tissue Migraine Anemia Chronic tophaceous gout Gout Hyperlipidemia Surgical History H/O colonoscopy Social History Are you a primary menagerie caretaker to a significant other at home: No Do you presently have visiting nurse or other home services: No Alcohol intake: never Patient Tobacco Use Status: Former Tobacco user Substance Use Type: Marijuana Review of Systems Const All systems reviewed & are unremarkable except as noted in HPI and below Physical Exam Vital Signs: Last Vital Signs Pulse 61 03/30/24 12:42 BP 160/82 H 03/30/24 12:42 Pulse Ox 99 03/30/24 12:42 Oxygen Delivery Method Room Air 03/30/24 12:42 BMI result Body Mass Index 26.7 Const Other: General: Comfortable CVS: RRR Respiratory: clear to auscultation bilaterally. Good respiratory effort Skin: No lesions seen MSK: No tenderness of any joints. No podagra. No synovitis. Good range of motion of upper extremities and lower extremities. Assessment & Plan Assessment & Plan (1) Gout: Comment: Controlled with prophylaxis colchicine and low purine diet. He could not tolerate allopurinol in the past due to diarrhea. He has had multiple drug side effects. After shared decision-making, he would prefer to remain on prophylaxis with colchicine and low purine diet then to try another uric lowering agent. Code(s): M10.9 - Gout, unspecified Category: Medical Qualifiers: Gout site: foot Gout etiology: unspecified cause Chronicity: chronic Laterality: unspecified laterality Qualified Code(s): M1A.0790 - Idiopathic chronic gout, unspecified ankle and foot, without tophus (tophi) Plan: Labs for drug monitoring ordered Continue colchicine 0.6 mg daily Continue low purine diet He has prednisone at home if he has recurrent gout episodes use. 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
[2024-03-30 12:42] VITALS: BP 160/82; PULSE 61; O2SAT 99; BMI 26.7
== END 2024-03-30 13:45 | disposition home or self-care (01) ==
PROVIDERS: PCP Family Medicine; Visit Provider Internal Medicine Rheumatology
DX: M1A.0790 Idiopathic chronic gout, unspecified ankle and foot, without tophus (tophi) (principal); Z79.899 Other long term (current) drug therapy; M72.2 Plantar fascial fibromatosis
CPT/HCPCS: 99213; G2211

== ENCOUNTER 2024-03-30 12:34 | Outpatient (REF) | payer MEDICARE, SELFPAY ==
--- OUTSIDE RECORDS SUMMARY | 2024-03-30 14:29 | XMS_ITS | Patient Health Record ---
Author Organization [facility] Tele[facility] Address [address] [place] [address] Care Team Providers Care Generating Station Mechanic Name Role Phone Mj Hewitt Primary Care Provider Reason For Referral No Information Medications Medication SIG (Take, Route, Frequency, Duration) Notes Start Date End Date Status MAGNESIUM 400 MG SOFTGEL 0 1 qam *please review for potential update for e-prescription and drug interaction check* 06/14/2013 Active Lactose free diet 0 x 03/2003 *please review for potential update for e-prescription and drug interaction check* 06/14/2013 Active Gluten free diet 0 *please review for potential update for e-prescription and drug interaction check* 02/14/2013 Active GLUCOSAMINE & CHONDROITIN CAP [phone] MG 0 1 qam *please review for potential update for e-prescription and drug interaction check* 06/14/2013 Active Lisinopril 10 MG 0 Oral 1/2 tab qam for HTN d/c last summer, no better 12/16/2011 Active PROBIOTIC SOFTGEL 10 BILLION CELL 0 1 qam *please review for potential update for e-prescription and drug interaction check* 06/14/2013 Active MULTIVITAMINS TABLET 0 *please rev iew for potential update for e-prescription and drug interaction check* 06/14/2013 Active TURMERIC 500 MG CAPSULE 0 1 qam *please review for potential update for e-prescription and drug interaction check* 06/14/2013 Active FLAX SEED OIL 1,000 MG SOFTGEL 0 1 qam *please review for potential update for e-prescription and drug interaction check* 06/14/2013 Active COENZYME Q10 50 MG SOFTGEL 0 100 mg qam for 0 *please review for potential update for e-prescription and drug interaction check* 09/30/2013 Active ASPIRIN EC 81 MG TABLET 0 2 qhs *please review for potential update for e-prescription and drug interaction check* 06/14/2013 Active Red Yeast Rice 600 MG 0 Oral 1 qam 06/14/2013 Active VITAMIN D 2,000 UNIT SOFTGEL 0 1 qam *please review for potential update for e-prescription and drug interaction check* 06/14/2013 Active Plan Of Treatment No Information Insurance Providers Payer Name Payer Address Payer Phone Subscriber Number Group Number Insured Name Patient Relationship to Insured Coverage Start Date Coverage End Date BCBS MEDICARE PPO [address] [place], [place] [id number] Bony Parker Self - patient is the insured
--- OUTSIDE RECORDS SUMMARY | 2024-03-30 14:29 | XMS_ITS | Continuity of Care Document ---
Author Name [facility] Organization [facility] Care Team Providers Care Stripper And Printer Name Role Phone [facility] Unavailable Unavailable Problems Combined list of problems [...] 2017 Entered By: NOEMY CARBAJAL Comment: [facility] [place] [facility] Under care of multiple providers Active Condition Feb 06, 2017 Entered By: NOEMY CARBAJAL Comment: Dr Carla HenriquezFeb 06, 2017 Entered By: NOEMY CARBAJAL Comment: Dr Carla Jose ( special lyme case) [facility] Medications Combined list of outpatient medications from Department of Defense and Veterans Affairs facilities.Medications provided include 1) outpatient medications from the last 15 months, and 2) patient-reported medications. Medication Details Route Status Patient Instructions Prescription Expires Prescription Number Last Dispense Date Ordering Provider Order Date Order Qty Source OTHER CAP/TAB TAKE ZYFLAMEN D BY MOUTH ONCE DAILY ORAL ACTIVE ZACK RAY 2017 [facility] Allergies, Adverse Reactions, Alerts Combined list of allergies from Department of Defense and Veterans Affairs facilities. It does not include entries that were removed or entered in error. Substance Category Reaction Severity Reaction type Status Date Reported Comments Source ALLOPURINOL Propensity to adverse reactions to drug (finding) Diarrhea active 0 [facility] Propensity to adverse reactions to drug (finding) Pancreatiti s active 9 [facility] INFLUENZA Propensity to adverse reactions to drug (finding) Fever active 7 [facility] LACTOSE Propensity to adverse reactions to substance (finding) active 7 [facility] Immunizations Combined list of available immunizations from the Department of [facility] and Veterans [facility] facilities. Immunization Series Date Given Administered By Site Reaction Lot Number CVX Code Drug General Forecaster Status Comments Source ZOSTER RECOMBINANT 2 2019 187 complet ed [facility] ZOSTER RECOMBINANT 1 2019 187 complet ed [facility] TDAP 2017 115 complet ed Site: Left Deltoid [facility] PNEUMOCOCCAL CONJUGATE PCV 13 2015 133 complet ed lot: [id number] exp: 04/29/17 [facility] PNEUMOCOCCAL POLYSACCHARID E PPV23 2012 33 complet ed [facility] TD(ADULT) UNSPECIFIED FORMULATION 2011 139 complet ed Lot: [id number] exp: 01/16/12 [facility] Encounters Combined list of: 1) Encounters from Department of Veterans Affairs facilities going back up to thelast 18 months. 2) Encounters from the Department of Defense facilities going back up to 280 months. Location Location Details Encounter Type Encounter Number Reason For Visit Attending Provider ADM Date DC Date Status Disposition Source [place] [facility] Outpatient Encounter [id number] 10/20 [place] [facility] Social History Combined list of available smoking, tobacco, and other social history from Department of Defense and Veterans Affairs facilities. Social History Type Response Date Comment Sourc e Tobacco smoking status NHIS [place]-TOBACCO NEVER USED [facility]21/2018 [facility] History of tobacco use [place]-TOBACCO FORMER USER 05/25/2018 [place] History of tobacco use LIFETIME NON-TOBACCO USER 05/20/2017 [place] [facility]
[2024-03-30 14:37] LABS: MANUAL DIFF FLAG NO
[2024-03-30 15:25] LABS: Basophils Absolute Auto 0.1 X10*3/uL (0.0-0.2); Basophils Percent Auto 0.8 % (0-2); Eosinophils Absolute Auto 0.1 X10*3/uL (0.0-0.4); Eosinophils Percent Auto 1.3 % (0-4); Hematocrit 44.6 % (42.0-52.0); Hemoglobin 15.2 g/dl (14.0-18.0); Imm Gran Abs Auto 0.02 X10*3/uL (0.00-0.03); Imm Gran Pct Auto 0.2 % (0.0-0.4); Lymphocytes Absolute Auto 3.9 X10*3/uL (1.2-4.9); Lymphocytes Percent Auto 46.5 % (20-40); Mean Corpuscular HGB Conc 34.1 g/dl (31.0-36.0); Mean Corpuscular Hemoglobin 29.9 pg (27.0-33.0); Mean Corpuscular Volume 87.8 fL (80.0-98.0); Mean Platelet Volume 10.8 fL (9.4-12.4); Monocytes Absolute Auto 0.7 X10*3/uL (0.1-1.2); Monocytes Percent Auto 7.9 % (2-11); Neutrophils Absolute Auto 3.7 x10*3/uL (2.0-8.3); Neutrophils Percent Auto 43.3 % (45-73); Platelet Count 266 X10*3/uL (160-400); Red Blood Count 5.08 X10*6/uL (4.60-5.80); Red Cell Distribution Width 12.9 % (11.0-16.0); White Blood Count 8.5 X10*3/uL (4.8-10.8)
[2024-03-30 17:59] LABS: Estimated Glomerular Filt Rate > 60
== END 2024-03-30 12:35 | disposition home or self-care (01) ==
LOC: HO.LAB 12:34
PROVIDERS: PCP Family Medicine; Visit Provider Internal Medicine Rheumatology
DX: M1A.0790 Idiopathic chronic gout, unspecified ankle and foot, without tophus (tophi) (principal); M72.2 Plantar fascial fibromatosis; Z79.60 Long term (current) use of unspecified immunomodulators and immunosuppressants; Z79.899 Other long term (current) drug therapy
CPT/HCPCS: 36415; 82565; 85025; 99212

== ENCOUNTER 2024-04-09 11:35 | Outpatient (REF) | payer MEDICARE, SELFPAY ==
--- OUTSIDE RECORDS SUMMARY | 2024-04-09 12:00 | XMS_ITS | Continuity of Care Document ---
Author Name [facility] Organization [facility] Care Team Providers Care Staff Engineer Name Role Phone [facility] Unavailable Unavailable Problems Combined list of problems [...] 2017 Entered By: NOEMY CARBAJAL Comment: [facility] Under care of multiple providers Active Condition Feb 06, 2017 Entered By: NOEMY CARBAJAL Comment: Dr Carla HenriquezFeb 06, 2017 Entered By: NOEMY CARBAJAL Comment: Dr Carla Jose ( special lyme case) [facility] Medications Combined [...] ONCE DAILY ORAL ACTIVE ZACK RAY 2017 [facility] Allergies, Adverse Reactions, Alerts Combined list of allergies from Department of Defense and Veterans Affairs facilities. It does not include entries that were removed or entered in error. Substance Category Reaction Severity Reaction type Status Date Reported Comments Source ALLOPURINOL Propensity to adverse reactions to drug (finding) Diarrhea active 0 [facility] CRE[facility] Propensity to adverse reactions to drug (finding) Pancreatiti s active 9 [facility] INFLUENZA Propensity to adverse reactions to drug (finding) Fever active 7 [facility] LACTOSE Propensity to adverse reactions to substance (finding) active 7 [facility] Immunizations Combined list of available immunizations from the Department of [facility] and Veterans [facility] facilities. Immunization Series Date Given Administered By Site Reaction Lot Number CVX Code Drug Mortuary Operations Manager Status Comments Source ZOSTER RECOMBINANT 2 2019 187 complet ed [facility] ZOSTER RECOMBINANT 1 2019 187 complet ed [facility] TDAP 2017 115 complet ed Site: Left Deltoid [facility] PNEUMOCOCCAL CONJUGATE PCV 13 2015 133 complet ed lot: [id number] exp: 04/29/17 [facility] PNEUMOCOCCAL POLYSACCHARID E PPV23 2012 33 complet ed [facility] TD(ADULT) UNSPECIFIED FORMULATION 2011 139 complet ed Lot: [id number] exp: 01/16/12 [facility] Encounters Combined list of: 1) Encounters from Department of Veterans Affairs facilities going back up to thelast 18 months. 2) Encounters from the Department of Defense facilities going back up to 280 months. Location Location Details Encounter Type Encounter Number Reason For Visit Attending Provider ADM Date DC Date Status Disposition Source [place] [facility] Outpatient Encounter [id number] 10/20 [place] [facility] Social History Combined list of available smoking, tobacco, and other social history from Department of Defense and Veterans Affairs facilities. Social History Type Response Date Comment Sourc e Tobacco smoking status NHIS [place]-TOBACCO NEVER USED [facility]21/2018 [facility] History of tobacco use [place]-TOBACCO FORMER USER 05/25/2018 [place] History of tobacco use LIFETIME NON-TOBACCO USER 05/20/2017 [place] [facility]
--- OUTSIDE RECORDS SUMMARY | 2024-04-09 12:00 | XMS_ITS | Patient Health Record ---
Author Organization [facility] Address [address] [place] [address] Care Team Providers Care Crane Chaser Name Role Phone Mj Hewitt Primary Care [...] check* 02/14/2013 Active GLUCOSAMINE & CHONDROITIN CAP [phone] MG 0 1 qam *please review for [...] End Date [employer] MEDICARE PPO [address] [place], [place] [id number] Bony Parker Self - patient is the insured
[2024-04-09 12:29] LABS: Uric Acid 7.8 mg/dL (3.4-7.0)
== END 2024-04-09 11:36 | disposition home or self-care (01) ==
LOC: HO.LAB 11:35
PROVIDERS: PCP Family Medicine; Visit Provider Internal Medicine Rheumatology
DX: M1A.0790 Idiopathic chronic gout, unspecified ankle and foot, without tophus (tophi) (principal)
CPT/HCPCS: 36415; 84550

== ENCOUNTER 2024-10-08 14:19 | Outpatient (AMB) | payer MEDICARE, SELFPAY ==
--- OUTSIDE RECORDS SUMMARY | 2020-02-23 04:30 | XMS_ITS | Continuity of Care Document ---
Author Name [facility] Organization [facility] Care Team Providers Care Lead Presser Name Role Phone [facility] Unavailable Unavailable Problems Combined list of problems from Department of Defense and Veterans Affairs facilities. It does not include entries that were removed or entered in error. Problem Status Onset Date Problem Type Date of Resolution Comments Source Adult screening status Active Condition May 20, 2017 Entered By: NOEMY CARBAJAL Comment: Lymph, Abs 5.90 H - PT REPORTS CHRONIC CONDITION ( NO RECORDS)May 20, 2017 Entered By: NOEMY CARBAJAL Comment: TSH 5.04 HFeb 2017 Entered By: NOEMY CARBAJAL Comment: ALBUMIN 3.3 LFeb 2017 Entered By: NOEMY CARBAJAL Comment: CHOLESTEROL 272 H LDL calculated 177 H [facility] Allergy Active Condition Feb 06 17 Entered By: NOEMY CARBAJAL Comment: GENETIC TESTING - MTHFR- def ( sensitive to medications ) [facility] H/O: gout Active Condition [facility] Headache Active Condition [facility] HLD - Hyperlipidemia Active Condition [facility] Hypertension Active Condition [facility] Pancreatitis Active Condition [facility] Shared care - specialist and GP Active Condition Mar 03 17 Entered By: NOEMY CARBAJAL Comment: CWM/NO/MOVE! GROUP Consult Appt. on 04/04/18Feb 2017 Entered By: NOEMY CARBAJAL Comment: [facility] Under care of multiple providers Active Condition Feb 06, 2017 Entered By: NOEMY CARBAJAL Comment: Dr Carla HenriquezFeb 06, 2017 Entered By: NOEMY CARBAJAL Comment: Dr Carla Jose ( special lyme case) [facility] Medications Combined list of outpatient medications from Department [facility] and Veterans Affairs facilities.Medications provided include 1) outpatient medications from the last 15 months, and 2) patient-reported medications. Medication Details Route Status Patient Instructions Prescription Expires Prescription Number Last Dispense Date Ordering Provider Order Date Order Qty Source OTHER CAP/TAB TAKE ZYFLAMEN D BY MOUTH ONCE DAILY ORAL ACTIVE ZACK RAY 2017 [facility] Allergies, Adverse Reactions, Alerts Combined list of allergies from Department [facility] and Veterans Affairs facilities. It does not include entries that were removed or entered in error. Substance Category Reaction Severity Reaction type Status Date Reported Comments Source ALLOPURINOL Propensity to adverse reactions to drug (finding) Diarrhea active 0 [facility] CRESTOR Propensity to adverse reactions to drug (finding) Pancreatiti s active 9 [facility] INFLUENZA Propensity to adverse reactions to drug (finding) Fever active 7 [facility] LACTOSE Propensity to adverse reactions to substance (finding) active 7 [facility] Immunizations Combined list of available immunizations from the Department [facility] and [facility] facilities. Immunization Series Date Given Administered By Site Reaction Lot Number CVX Code Drug Supervisor Typesetting Status Comments Source ZOSTER RECOMBINANT 2 2019 187 complet ed [facility] ZOSTER RECOMBINANT 1 2019 187 complet ed [facility] TDAP 2017 115 complet ed Site: Left Deltoid [facility] PNEUMOCOCCAL CONJUGATE PCV 13 2015 133 complet ed lot: [id number] exp: 04/29/17 [facility] PNEUMOCOCCAL POLYSACCHARID E PPV23 2012 33 complet ed [facility] TD(ADULT) UNSPECIFIED FORMULATION 2011 139 complet ed Lot: [id number] exp: 01/16/12 [facility] Social History Combined list of available smoking, tobacco, and other social history from Department [facility] and [facility] Affairs facilities. Social History Type Response Date Comment Sourc e Tobacco smoking status NHIS VA-TOBACCO NEVER USED 10/21/2018 [facility] History of tobacco use PA-TOBACCO FORMER USER 05/25/2018 [facility] History of tobacco use LIFETIME NON-TOBACCO USER 05/20/2017 [facility]
--- OUTSIDE RECORDS SUMMARY | 2024-10-08 14:23 | XMS_ITS | Patient Health Record ---
Author Organization [facility] Address [address] [place] [address] Care Team Providers Care Reception Centre Manager Name Role Phone Mj Hewitt Primary Care [...] check* 02/14/2013 Active GLUCOSAMINE & CHONDROITIN CAP [phone] MG 0 1 qam *please review for [...] End Date BCBS MEDICARE PPO [address] [place], [place] [id number] Bony Parker Self - patient is the insured
[2024-10-08 14:33] VITALS: BP 140/70; PULSE 75; O2SAT 96; BMI 27.0
--- NOTE | 2024-10-08 14:33 | MHC.OFFVIS ---
Vital Signs 10/08/24 14:33 Height 5 ft 9 in Weight 182 lb 12.211 oz BMI 27.0 BP 140/70 H Blood Pressure Location Lt brachial Position Sitting Pulse 75 Pulse Source Pulse Oximeter Pulse Oximetry (%) 96 Oxygen Delivery Method Room Air Intake Visit Reasons: Follow Up 6mo Intake Note: Patient presents today for follow up on gout. Patient would like refill on Colchicine today. Accompanied by: Spouse Allergies lactose (LACTOSE) Allergy (Unknown, Verified 10/08/24 14:36) DIARRHEA acetazolamide Allergy (Verified 10/08/24 14:36) Headache allopurinol Allergy (Verified 10/08/24 14:36) Diarrhea amlodipine Allergy (Verified 10/08/24 14:36) Swelling influenza virus vaccine, specific Allergy (Verified 10/08/24 14:36) Fever lisinopril Allergy (Verified 10/08/24 14:36) Unknown Sulfa (Sulfonamide Antibiotics) Allergy (Verified 10/08/24 14:36) Unknown HPI HPI Follow Up 6mo: Details: He has had no gout flares. He continues to colchicine 0.6 mg daily. [facility] Medical History (Updated 10/08/24 @ 15:27 by Tunde Lopez MD) Elevated blood pressure reading without diagnosis of hypertension Family history of malignant melanoma Nocturia History of headache IBS (irritable bowel syndrome) Cyst of oral soft tissue Migraine Anemia Chronic tophaceous gout Gout Hyperlipidemia Surgical History H/O colonoscopy Social History Are you a primary animal care technician to a significant other at home: No Do you presently have visiting nurse or other home services: No Alcohol intake: never Patient Tobacco Use Status: Former Tobacco user Substance Use Type: Marijuana Physical Exam Vital Signs: Last Vital Signs Pulse 75 10/08/24 14:33 BP 140/70 H 10/08/24 14:33 Pulse Ox 96 10/08/24 14:33 Oxygen Delivery Method Room Air 10/08/24 14:33 BMI result Body Mass Index 27.0 Const Other: General: Comfortable CVS: RRR Respiratory: clear to auscultation bilaterally. Good respiratory effort Skin: No lesions seen MSK: No tenderness of any joints. No podagra. No synovitis. Assessment & Plan Assessment & Plan (1) Gout: Comment: Controlled with prophylaxis colchicine and low purine diet. 10/07/2024 is uric acid is 8.1. Creatinine is 1.2 with EGFR greater than 60 mL/minutes. Rheumatology history: He could not tolerate allopurinol in the past due to diarrhea. He has had multiple drug side effects. After shared decision-making, he would prefer to remain on prophylaxis with colchicine and low purine diet over trying another uric lowering agent. Code(s): M10.9 - Gout, unspecified Category: Medical Qualifiers: Chronicity: chronic Gout etiology: unspecified cause Gout site: foot Laterality: unspecified laterality Qualified Code(s): M1A.0790 - Idiopathic chronic gout, unspecified ankle and foot, without tophus (tophi) Plan: Labs for drug monitoring on colchicine ordered. Continue colchicine 0.6 mg daily Return to clinic in 6 months (2) Other penitentiary (current) drug therapy: Code(s): Z79.899 - Other long term care social worker (current) drug therapy Category: Medical Plan: See above Orders: Orders Complete Blood Count Man Dif Today M1A.0790 - Idiopathic chronic gout, unspecified ankle and foot, without tophus (tophi), Z79.899 - Other penitentiary (current) drug therapy Alanine Aminotransferase Today M1A.0790 - Idiopathic chronic gout, unspecified ankle and foot, without tophus (tophi), Z79.899 - Other penitentiary (current) drug therapy Aspartate Amino Transferase Today M1A.0790 - Idiopathic chronic gout, unspecified ankle and foot, without tophus (tophi), Z79.899 - Other penitentiary (current) drug therapy Medications: Refilled colchicine 0.6 mg PO DAILY 90 tabs 1RF Coding Level of Care Code Est Pt Level 3 (49251) Complex EM visit Add On G2211 Diagnoses Chronic gout of foot, unspecified cause, unspecified laterality M1A.0790 Chronicity: chronic Gout etiology: unspecified cause Gout site: foot Laterality: unspecified laterality Other long term care social worker (current) drug therapy Z79.899
== END 2024-10-08 15:23 | disposition home or self-care (01) ==
LOC: HO.RHES 14:20
PROVIDERS: PCP Family Medicine; Visit Provider Internal Medicine Rheumatology
DX: M1A.0790 Idiopathic chronic gout, unspecified ankle and foot, without tophus (tophi) (principal); Z79.899 Other long term (current) drug therapy
CPT/HCPCS: 99213; G2211

== ENCOUNTER 2024-10-08 14:19 | Outpatient (REF) | payer MEDICARE, SELFPAY ==
[2024-10-08 17:42] LABS: Baso%MD 1.0 %; Eos%MD 1.6 %; Hematocrit 42.3 % (42.0-52.0); Hemoglobin 14.4 g/dl (14.0-18.0); IG%MD 0.2 %; Lymph%MD 43.0 %; Mean Corpuscular HGB Conc 34.0 g/dl (31.0-36.0); Mean Corpuscular Hemoglobin 30.1 pg (27.0-33.0); Mean Corpuscular Volume 88.3 fL (80.0-98.0); Mono%MD 6.7 %; NRBC Abs Auto 0.000 X10*3/uL (0.0-0.012); NRBC Pct Auto 0.0 /100WBC (0.0-0.2); Neut%MD 47.5 %; Platelet Count 261 X10*3/uL (160-400); Red Blood Count 4.79 X10*6/uL (4.60-5.80); White Blood Count 8.2 X10*3/uL (4.8-10.8)
[2024-10-08 18:04] LABS: Alanine Aminotransferase 35 U/L (0-40); Aspartate Amino Transferase 17 U/L (5-37)
[2024-10-08 19:42] LABS: Atypical Lymph Absolute Manual 0.3 x10*3/uL; Atypical Lymphs Percent Manual 4 % (0-6); Band Neutrophils Percent 2 % (3-5); Basophils Abs Manual 0.1 X10*3/uL (0.0-0.2); Basophils Percent Manual 1 % (0-2); Eosinophils Absolute Manual 0.3 X10*3/uL (0.0-0.4); Eosinophils Percent Manual 4 % (0-4); Lymphocytes Absolute Manual 3.1 X10*3/uL (1.2-4.9); Lymphocytes Percent Manual 38 % (20-40); Monocytes Absolute Manual 0.4 X10*3/uL (0.1-1.2); Monocytes Percent Manual 5 % (2-11); Neutrophils Absolute Manual 3.9 X10*3/uL (2.0-8.3); Neutrophils Percent Manual 46 % (45-73)
[2024-10-08 19:43] LABS: RBC Morphology NORMAL
== END 2024-10-08 14:20 | disposition home or self-care (01) ==
LOC: HO.HKASLDS 14:19
PROVIDERS: PCP Family Medicine; Visit Provider Internal Medicine Rheumatology
DX: Z79.899 Other long term (current) drug therapy (principal); M1A.0790 Idiopathic chronic gout, unspecified ankle and foot, without tophus (tophi)
CPT/HCPCS: 36415; 84450; 84460; 85007; 85027; 99212

== ENCOUNTER 2024-11-18 12:40 | Outpatient (AMB) | payer MEDICARE, SELFPAY ==
--- NOTE | 2024-11-18 12:41 | MHC.OFFVIS ---
Intake Visit Reasons: Elevated PSA Intake Note: New Patient is present for elevated PSA Urology Rx:none Blood Thinners:none Imaging completed: none Software Quality Tester Required: No Accompanied by: Self / Same As Patient Allergies lactose (LACTOSE) Allergy (Unknown, Verified 11/18/24 12:42) DIARRHEA acetazolamide Allergy (Verified 11/18/24 12:42) Headache allopurinol Allergy (Verified 11/18/24 12:42) Diarrhea amlodipine Allergy (Verified 11/18/24 12:42) Swelling influenza virus vaccine, specific Allergy (Verified 11/18/24 12:42) Fever lisinopril Allergy (Verified 11/18/24 12:42) Unknown Sulfa (Sulfonamide Antibiotics) Allergy (Verified 11/18/24 12:42) Unknown HPI Comments Details: Bony is a pleasant male. He is a patient of Dr. Meeks. 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 Medical History (Updated 11/18/24 @ 13:48 by Marcelino Hess MD) Elevated blood pressure reading without diagnosis of hypertension Family history of malignant melanoma Nocturia History of headache IBS (irritable bowel syndrome) Cyst of oral soft tissue Migraine Anemia Chronic tophaceous gout Gout Hyperlipidemia Surgical History H/O colonoscopy Social History Are you a primary care consultant to a significant other at home: No Do you presently have visiting nurse or other home services: No Alcohol intake: never Patient Tobacco Use Status: Former Tobacco user Substance Use Type: Marijuana Review of Systems Const Denies chills and Denies fever(s) Card Reports no additional complaints and Denies syncope Resp Denies cough GI Denies abdominal pain and Denies heartburn Reports as per HPI and Denies change in libido Neuro Denies syncope Psych Denies change in libido Endo Denies change in libido Physical Exam Const General: cooperative, healthy appearing, comfortable and no acute distress Orientation/consciousness: patient oriented x3 HEENT Face and sinus: Yes normal facial exam Mouth: moist mucous membranes Neck Neck: Yes normal visual inspection, Yes full ROM and Yes trachea midline Chest Chest palpation & inspection: normal inspection of the chest Resp Effort & Inspection: normal respiratory effort, able to speak in complete sentences and no respiratory distress GI Inspection: Yes normal to inspection Rectal Exam - Male: Yes normal sphincter tone and Yes prostate normal Male General Exam: Yes normal external exam Penis: normal penis and circumcised Meatus: meatus normal Scrotum: scrotum normal Testes: Testes normal Back/Spine/Pelvis Cervical Spine: normal cervical lordosis Thoracic/Lumbar Spine: thoracic and lumbar spine normal to inspection Skin General skin exam: no rashes or lesions noted Neuro General: patient oriented x3, gait normal, tone normal and moves all extremities Extrem General: Yes normal to inspection and Yes capillary refill normal Results AMB Urinalysis, Automated UA Leukoctes 0 Junaid/uL Last Edit by IVONE Thompson on 11/18/24 13:20 UA Nitrite Negative Last Edit by IVONE Thompson on 11/18/24 13:20 UA Urobilinogen 0.2 mg/dL Last Edit by IVONE Thompson on 11/18/24 13:20 UA Protein 0 mg/dL Last Edit by IVONE Thompson on 11/18/24 13:20 UA pH 6.0 Last Edit by IVONE Thompson on 11/18/24 13:20 UA Blood 0 Wang/uL Last Edit by IVONE Thompson on 11/18/24 13:20 UA Specific [place] 1.025 Last Edit by IVONE Thompson on 11/18/24 13:20 UA Ketone Negative Last Edit by IVONE Thompson on 11/18/24 13:20 UA Bilirubin 0 mg/dL Last Edit by IVONE Thompson on 11/18/24 13:20 UA Glucose 0 mg/dL Last Edit by IVONE Thompson on 11/18/24 13:20 Results Reviewed Results Reviewed: Laboratory Last Values Urine pH (Auto) 6.0 11/18/24 13:19 Specific [place] (Auto) 1.025 11/18/24 13:19 Urine Protein (Auto) 0 mg/dL 11/18/24 13:19 Glucose (UA)(Auto) 0 mg/dL 11/18/24 13:19 Urine Ketones (Auto) Negative 11/18/24 13:19 Urine Blood (Auto) 0 Wang/uL 11/18/24 13:19 Urine Nitrite (Auto) Negative 11/18/24 13:19 Urine Bilirubin (Auto) 0 mg/dL 11/18/24 13:19 Urine Urobilinogen (Auto) 0.2 mg/dL 11/18/24 13:19 Leukocyte Esterase (Auto) 0 Junaid/uL 11/18/24 13:19 Assessment & Plan Assessment & Plan (1) Elevated PSA: Code(s): R97.20 - Elevated prostate specific antigen [PSA] Category: Medical Plan Start dutasteride Four-month follow-up repeat PSA tele Orders: Orders AMB Urinalysis Automated Today Z13.9 - Encounter for screening, unspecified PSA,Total (Free>4and<10) 4 Months R97.20 - Elevated prostate specific antigen [PSA] Medications: New dutasteride 0.5 mg PO DAILY 90 caps 1RF 90 days N13.8 - Other obstructive and reflux uropathy, N40.1 - Benign prostatic hyperplasia with lower urinary tract symptoms, R97.20 - Elevated prostate specific antigen [PSA] Patient Instructions: This note is constructed using voice recognition software. While every effort has been made to ensure accuracy shotgun shell reprinting unit operator errors may have been included. Imaging studies, laboratory and physical exam results were discussed and reviewed in detail. No major barriers to patient understanding were identified. An opportunity to ask questions regarding the treatment plan was provided. All questions were answered. The patient expressed understanding and agreement with the above treatment plan. The patient is aware they should contact our office by phone for worsening of their current condition or the appearance of new urologic symptoms. Compliance is encouraged with any medications and followup testing that is ordered. It is a privilege to participate in the urologic care of your patient. If you have any questions or concerns regarding treatment for the above conditions, or other urologic issues, please do not hesitate to contact me. The office telephone contact is [phone]. Sincerely, Dr Marcelino Hess MD, [facility] - Urology Compassionate Specialist Care for the Genitourinary System Coding Level of Care Code New Pt Level 4 (97333) Diagnoses Elevated PSA R97.20
== END 2024-11-18 13:53 | disposition home or self-care (01) ==
LOC: HO.HUSH 12:40
PROVIDERS: PCP Family Medicine; Visit Provider Urology
DX: R97.20 Elevated prostate specific antigen [PSA] (principal); Z13.9 Encounter for screening, unspecified
CPT/HCPCS: 99204

== ENCOUNTER → 2024-11-18 12:40 | Outpatient (BNVA) | payer MEDICARE, SELFPAY | PROVIDERS: PCP Family Medicine; Visit Provider Urology | DX: R97.20 Elevated prostate specific antigen [PSA] (principal) | CPT/HCPCS: 81003; 99202 ==

== ENCOUNTER 2025-02-28 13:02 | Outpatient (AMB) | payer MEDICARE, SELFPAY ==
--- NOTE | 2025-02-28 13:04 | A.OFFVIS_ITS ---
Vital Signs 02/28/25 13:08 Height 5 ft 9 in Weight 180 lb 12.465 oz BMI 26.7 BP 120/62 Blood Pressure Location Lt brachial Position Sitting Pulse 62 Pulse Source Monitor Intake Visit Reasons: COUNSELING AIDE/ Ree Rivera MD/ hyperlipidemia Intake Note: assembly line supervisor/shukri/ hyperlipidemia Metalworking Specialist Required: No Accompanied by: Spouse Allergies lactose (LACTOSE) Allergy (Unknown, Verified 11/18/24 12:42) DIARRHEA acetazolamide Allergy (Verified 11/18/24 12:42) Headache allopurinol Allergy (Verified 11/18/24 12:42) Diarrhea amlodipine Allergy (Verified 11/18/24 12:42) Swelling influenza virus vaccine, specific Allergy (Verified 11/18/24 12:42) Fever lisinopril Allergy (Verified 11/18/24 12:42) Unknown Sulfa (Sulfonamide Antibiotics) Allergy (Verified 11/18/24 12:42) Unknown Medication List - Last Reconciled 02/28/25 by Tyron Angel MD acidophilus-pectin, citrus 100 million cell-10 mg 1 cap PO DAILY ascorbic acid (vitamin C) (Vitamin C) 100 mg PO DAILY B complex-vitamin C-folic acid 400 mcg ER tabs PO cholecalciferol (vitamin D3) (Vitamin D3) 25 mcg PO DAILY coenzyme Q10 (Co Q-10) 10 mg PO ONCE colchicine 0.3 mg PO DAILY cyanocobalamin (vitamin B-12) (Vitamin B-12) 50 mcg PO DAILY dutasteride 0.5 mg PO DAILY 90 days flaxseed oil 1,000 mg PO DAILY glucos sul [id number]-[id number]-trakv-C-Mn 550-30-1 mg (Glucosamine Chondroitin) caps PO ibuprofen 600 mg PO Q8H PRN omega 4-nzs-aud-fish oil 1,000 (120-180) mg (Fish Oil) 1 cap PO DAILY red yeast rice 600 mg PO DAILY HPI Comments Details: [age] year gentleman who is referred to us for hyperlipidemia. He has multiple drug intolerances. He has a history of gout in his currently taking colchicine 0.3 mg daily. He previously was taking statins but unfortunately had episode of pancreatitis and it was told to him that this was linked with statin use. He is saying that he had assessment by Allergy and immunology and he was told that he has mutation of P 450 gene. He will share the details through portal with us. He is saying that due to that he is unable to take a lot of medications. He said he was given script for Praluent but he has not started it because he is concerned that he may get a reaction due to his P 450 gene mutation. He does not have any coronary disease or vascular disease in the past. He is using red yeast rice. He has labs but LDL was not there but calculated LDL by myself is 222. This puts him into the familiar hyperlipidemia arrange. [facility] Medical History (Updated 02/28/25 @ 13:46 by Tyron Angel MD) Elevated blood pressure reading without diagnosis of hypertension Family history of malignant melanoma Nocturia History of headache IBS (irritable bowel syndrome) Cyst of oral soft tissue Migraine Anemia Chronic tophaceous gout Gout Hyperlipidemia Surgical History H/O colonoscopy Social History (Updated 02/28/25 @ 13:12 by Radha Guadarrama CMA) Are you a primary career coordinator to a significant other at home: No Do you presently have visiting nurse or other home services: No Alcohol intake: never Patient Tobacco Use Status: Never used Tobacco Substance Use Type: Marijuana Review of Systems Const Denies chills, Denies fatigue, Denies fever(s), Denies frequent falls, Denies weakness, Denies weight gain and Denies weight loss ENT Denies dizziness Card Denies chest pain, Denies leg edema, Denies lightheadedness, Denies palpitations, Denies dyspnea, Denies dyspnea on exertion and Denies orthopnea Resp Denies cough, Denies dyspnea and Denies dyspnea on exertion GI Denies bloating and Denies change in bowel habits Musc Denies muscle weakness, Denies numbness and Denies tingling Neuro Denies dizziness, Denies frequent falls, Denies numbness, Denies tingling and Denies weakness Endo Denies fatigue and Denies palpitations Physical Exam Vital Signs: Last Vital Signs Pulse 62 02/28/25 13:08 BP 120/62 02/28/25 13:08 BMI result Body Mass Index 26.7 GENERAL APPEARANCE: in no acute distress, pleasant. NECK: no carotid bruit, no jugular venous distention. SKIN: no suspicious lesions, warm and dry. HEART: no murmurs, regular rate and rhythm. LUNGS: clear to auscultation bilaterally. ABDOMEN: soft, nontender. EXTREMITIES: no edema. PERIPHERAL PULSES: equal. NEUROLOGIC: No gross deficits, AAO X 3 Office Procedures EKG Details: Sinus rhythm 62 beats per minute, normal axis, nonspecific T-wave changes, QTC 436 milliseconds. [id number], Complete Assessment & Plan Assessment & Plan (1) Hyperlipidemia: Code(s): E78.5 - Hyperlipidemia, unspecified Category: Medical Plan [age] year gentleman with hyperlipidemia with LDL of 222. He has a lot of drug intolerances in the past. Apparently he had an episode of pancreatitis after taking statins. He has diarrhea with allopurinol and multiple other drug intolerances. He is saying that these are linked with potentially P 450 gene mutation and he will share that details with me. I have explained to him that this is something relatively new for me but I have reviewed metabolism of Praluent and it is not a P 450 related metabolism. I think he can safely use Praluent at this stage because his LDL cholesterol is 222 and in the familiar hy perlipidemia arrange and must be brought down to prevent future cardiovascular issues. He was started and we will repeat fasting lipid panel in 2 months. If he gets a reaction with Praluent then I would try to find an alternative although the twice a day we will be quite limited to make a substantial change in his lipid panel. No chest discomfort shortness of breath. Currently no plan for stress testing. He will see us back in few months. Thank you for allowing me to participate in the care of your patient. Please feel free to contact me if you have any questions. Medications: Changed From colchicine 0.6 mg PO DAILY 90 tabs 1RF To colchicine 0.3 mg PO DAILY Coding Level of Care Code New Pt Level 4 (67866) Diagnoses Hyperlipidemia E78.5 CPT Codes EKG - CPT: 73380-[id number], Complete ([id number])
[2025-02-28 13:08] VITALS: BP 120/62; PULSE 62; BMI 26.7
--- OUTSIDE RECORDS SUMMARY | 2025-02-28 16:41 | XMS_ITS | Encounter Summary ---
Author Organization [facility] Address [address] [place] [phone] Phone Care Team Providers Care Braille Typist Name Role Phone Ree Abraham MD Primary Care Prov ider Encounter Details Date Type Department Care Team (Late st Contact Info) Description 12/19/2021 Procedure Pass [facility] Endoscopy Admitting Dept Virtual Department [address] [place] [address] Social History Tobacco Use Types Packs/Day Years Used Date Smoking Tobacco: Never Smokeless Tobacco: Never Alcohol Use Standard Drinks/Week Comments Not Currently 0 (1 standard drink = 0.6 oz pur e alcohol) Sex and Gender Information Value Date Recorded Sex Assigned at Male 04/02/2024 8:08 AM EST Legal Sex Male 5:05 PM EST Gender Identity Male 04/02/2024 8:08 AM EST Sexual Orientation Not on file documented as of this encounter Plan of Treatment Not on file documented as of this encounter Visit Diagnoses Not on filedocumented in this encounter Care Teams Braille Typist Relationship Specialty Start Date End Date Ree Abraham MD PCP - General Family Medicine 01/26/19 documented as of this encounter Additional Source Comments The information contained in this document represents components of the legal health record. It is not the complete legal health record.[facility]
--- OUTSIDE RECORDS SUMMARY | 2025-02-28 16:41 | XMS_ITS | Encounter Summary ---
Author Organization [facility] Address [address] [place] [address] Phone Care Team Providers Care Adjustment Supervisor Name Role Phone Florentin Spencer MD Primary Care Provider [phone] Ophelia Darby MD Unavailable [phone] Mo Cisneros MD Unavailable Ike Melgoza MD Unavailable [phone] Ree Abraham MD Primary Care Prov ider Encounter Details Date Type Department Care Team (Late st Contact Info) Description 04/15/2018 Ancillary Orders Virtual Department [address] [place] [address] Nino Bowden MD [address] [place] [id number] CSF leak Social History Tobacco Use Types Packs/Day Years Used Date Smoking Tobacco: Never Assessed Sex and Gender Information Value Date Recorded Sex Assigned at Male 04/02/2024 8:08 AM EST Legal Sex Male 5:05 PM EST Gender Identity Male 04/02/2024 8:08 AM EST Sexual Orientation Not on file documented as of this encounter Plan of Treatment Not on file documented as of this encounter Visit Diagnoses Diagnosis CSF leak Other specified disorder of nervous system documented in this encounter Care Teams Adjustment Supervisor Relationship Specialty Start Date End Date Florentin Spencer MD [address] [place] [address] [email or web address] PCP - General 09/28/13 01/25/19 Ree Abraham MD [address] [address] PCP - General Family Medicine 01/26/19 Ophelia Darby MD [address] [place] [address] [email or web address] Historical LMR Provider 01/15/17 2 Mo Cisneros MD [address] [place] [address] [email or web address] Historical LMR Provider 01/15/17 2 Ike Melgoza MD [address] [address] [email or web address] Historical LMR Provider 01/15/17 04/07/21 documented as of this encounter Additional Source Comments The information contained in this document represents components of the legal health record. It is not the complete legal health record.[facility]
--- OUTSIDE RECORDS SUMMARY | 2025-02-28 16:41 | XMS_ITS | Encounter Summary ---
Author Organization [facility] Address [address] [place] [phone] Phone Care Team Providers Care Gas Station Manager Name Role Phone Ree Abraham MD Primary Care Prov ider Encounter Details Date Type Department Care Team (Late st Contact Info) Description 02/02/2025 Procedure Pass [facility] Endoscopy Admitting Dept Virtual Department [address] [place] [address] Social History Tobacco Use Types Packs/Day Years Used Date Smoking Tobacco: Never Smokeless Tobacco: Never Alcohol Use Standard Drinks/Week Comments Not Currently 0 (1 standard drink = 0.6 oz pur e alcohol) Education Answer Date Recorded Are you interested in more education? Not on david e 07/28/2022 Are you concerned about learning? Not on file 07/28/2022 No 07/28/2022 No 07/28/2022 Digital Access Answer Date Recorded No 08/20/2022 No 08/20/2022 Reliable internet access at home? Not on file 08/20/2022 Device with a working camera? Not on file Intimate Partner Violence Answer Date R ecorded Are you denied basic needs s uch as food, clothing, or medical care? No 02/02/2025 In the past 12 months have y ou been in a relationship with a person who hurts, threatens, or tries to control you? No 02/02/2025 Are you denied basic needs s uch as food, clothing, or medical care? No 02/02/2025 In the past 12 months have y ou been in a relationship with a person who hurts, threatens, or tries to control you? No 02/02/2025 Sex and Gender Information Value Date Recorded Sex Assigned at Male 04/02/2024 8:08 AM EST Legal Sex Male 5:05 PM EST Gender Identity Male 04/02/2024 8:08 AM EST Sexual Orientation Not on file documented as of this encounter Plan of Treatment Not on file documented as of this encounter Visit Diagnoses Not on filedocumented in this encounter Care Teams Gas Station Manager Relationship Specialty Start Date End Date Ree Abraham MD [email or web address] PCP - General Family Medicine 01/26/19 documented as of this encounter Additional Source Comments The information contained in this document represents components of the legal health record. It is not the complete legal health record.[facility]
--- OUTSIDE RECORDS SUMMARY | 2025-02-28 16:41 | XMS_ITS | Clinical Summary ---
Author Organization [facility] Address 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 Active omega 1-jvo-bel-fish oil 1,000 mg (120 mg-180 mg) Cap Take 1 capsule by mouth daily. Active red yeast rice 600 mg Cap Take 600 mg by mouth 2 (two) times a day. Active flaxseed oiL 1,000 mg Cap Take 1,000 mg by mouth daily. Active colchicine (COLCRYS) 0.6 mg tablet Take 0.6 mg by mouth daily. Active coenzyme Q10 100 mg capsule Take 100 mg by mouth daily. Active vit B12/intrinsic fact/folate (INTRINSI G83-FECEHR ORAL) Take by mouth. Active Active Problems Problem Noted Date Diagnosed Date Essential hypertension 08/12/2022 Assessment & Plan (08/12/2022 12:55 PM EDT): His BP in office today is elevated, consistent with his home readings. Believes that a lot of his medical issues are secondary to [place] exposure in [facility]. He has had numerous intolerances to medications (including antihypertensives, most recently lisinopril and amlodipine) in the past. He is currently working on a spreadsheet that delineates all of the medication classes that he has reacted to in the past. He believes that he has been on more than just lisinopril and amlodipine but would have to look over his list to be sure. He would like to do this prior to considering starting another medication to ensure that we aren't starting one that he has reacted to in the past. He's going to send me a portal message once his spreadsheet is finalized so that we can decide which antihypertensive class to trial next. He is aware of the risks associated with untreated hypertension long-term. Palpitations 07/13/2021 PVC (premature ventricular contraction) 07/14/19 Assessment & Plan (10/08/2021 9:48 AM EDT): Reviewed his echo as above. He tells me that his blood pressure at home is usually well tolerated and that he is especially sensitive to blood pressure medications. He follows a low sodium diet and stays active in an effort to control his BP and other risk factors. Will continue amlodipine at 5 mg daily. Assessment & Plan (07/13/2021 9:40 AM EDT): Patient has a holter showing PVCs, and one single 4 beat run of NSVT. Doesn't seem very symptomatic. Except Occ palpitations. Will get an echo to assess him for structural heart disease. He doesn't have angina either. He is on norvasc for HTN, he has some side effects ,may be worth trialing a beta milton class to see if it helps both the BP and some of this ventricular ectopy. NSVT (nonsustained ventricular tachycardia) 06/29 Hyperlipidemia 07/12/2021 Assessment & Plan (08/12/2022 12:31 PM EDT): Intolerant of numerous statins in the past. He is managing this with diet and exercise. Gout 07/12/2021 Anemia 07/12/2021 Migraine 07/12/2021 IBS (irritable bowel syndrome) 07/12/2021 Intestinal obstruction 08/28/2012 Overview (05/21/2014): Intestinal obstruction; E coli Headache 08/28/2012 Overview (05/21/2014): Headache Encounters Date Type Department Care Team Description 02/02/2025 3:00 PM EST - 02/02/2025 3:30 PM EST Surgery [facility] Admitting Dept Virtual Department [address] [place] [phone] Otis Peter MD COLONOSCOPY 02/02/2025 8:39 AM EST Anesthesia Event [facility] Admitting [facility] Virtual Department [address] [place] [phone] Geronimo Wellington MD, RENAY 02/02/2025 8:13 AM EST - 02/02/2025 10:17 AM EST Hospital Encounter [facility] Virtual Department [address] [place] [phone] Otis Peter MD Discharge Disposition: Home or Self Care 02/02/2025 Procedure Pass [facility] Admitting [facility] Virtual Department [address] [place] [id number] from Last 3 Months Immunizations Immunization Administration Dates Next Due COVID-19 (Pre-01/20) Pfizer Vaccine, mRNA, PF ,04/28/2020 Td (adult) 5 Lf Tetanus Toxoid, PF, Adsorbed 01/2012 Tdap 11/17/2017 Zoster recombinant 02/23/2020,04/28/2019 Family History Medical History Relation Comments Cancer Brother Gout Brother Alcohol abuse Father Dementia Father Cancer Maternal Grandmother Cancer Mother Relation Status Comments Brother Father Maternal Grandmother Mother Social History Tobacco Use Types Packs/Day Years Used Date Smoking Tobacco: Never Smokeless Tobacco: Never Tobacco Cessation:Counseling Given: Not Answered Alcohol Use Standard Drinks/Week Comments Not Currently [...] AM EST Sexual Orientation Not on file Last Filed Vital Signs Vital Sign Reading Time Taken Comments Blood Pressure 142/65 02/02/2025 9:30 AM EST Pulse 55 02/02/2025 9:30 AM EST Temperature 35.8 C (96.4 F) 02/02/2025 9:13 AM EST Respiratory Rate 22 02/02/2025 9:30 AM EST Oxygen Saturation 99% 02/02/2025 9:30 AM EST Inhaled Oxygen Concentration - - Weight 79.9 kg (176 lb 3.2 oz) 02/25/2024 10:00 AM EST Height 176.5 cm (5' 9.49 ) 02/25/2024 10:[address] Body Mass Index 25.65 02/25/2024 10:00 AM EST Plan of Treatment Health Maintenance Due Date Last Done Comments LIPID PANEL 1945 DEPRESSION SCREENING 1958 HEPATITIS C SCREENING 1964 COLOGUARD 07/06/1991 FIT TEST 07/06/1991 FOBT 07/06/1991 SIGMOIDOSCOPY 07/06/1991 VIRTUAL COLONOSCOPY 07/06/1991 PNEUMOCOCCAL VACCINES (50+ years) (1 of 1 - PCV) 1996 RSV VACCINE (1 - 1-dose 75+ series) 2021 BLOOD PRESSURE 08/24/2024 02/25/2024 INFLUENZA VACCINE (#1) 2024 COVID-19 VACCINE (3 - 2024-2 6 season) 2024 05/23/2020, 04/28/2020 Adult Td,Tdap Booster 11/18/2027 11/17/2017 , 04/10/2011 COLONOSCOPY 02/02/2030 02/02/2025, 12/19/2021 COLORECTAL CANCER SCREENING 02/02/2030 ZOSTER VACCINES Completed 02/23/2020, 04/28/2019 SMOKING STATUS SCREENING (On ce After 26 Yrs) Completed 02/02/2025 HEPATITIS A VACCINES Aged Out No long er eligible based on patient's age to complete this topic HIB VACCINES Aged Out No longer eligi ble based on patient's age to complete this topic MENINGOCOCCAL VACCINES (ACWY) Aged Out No longer eligible based on patient's age to complete this topic MENINGOCOCCAL VACCINES (B) Aged Out N o longer eligible based on patient's age to complete this topic Medical Devices Not on file Procedures Procedure Name Priority Date/Time Associated Diagnosis Comments TISSUE EXAM Routine 02/02/2025 9:02 AM EST OK COLSC FLX W/RMVL OF TUMOR POLYP LESION SNARE TQ 02/02/2025 8:38 AM EST colon OK COLONOSCOPY W/BIOPSY SINGLE/MULTIPLE 02/02/2025 8:38 AM EST colon OK COLONOSCOPY FLX DX W/COLLJ SPEC WHEN PFRMD 02/02/2025 8:38 AM EST colon ENDOSCOPY, COLON 02/02/2025 8:32 AM EST from Last 3 Months Results * Tissue Exam (02/02/2025 9:02 AM EST) Final Pathologic Diagnosis A. COLON, DESCENDING; FORCEP X 2; POLYPECTOMY: Adenomatous polyp fragments 02/03/2025 1:51 PM EST [facility] at 1351 EST Clinical History Pre-op diagnosis: colon 02/03/2025 1:51 PM [facility] Gross Description A. COLON, DESCENDING; FORCEP X 2: Received in formalin are 3 irregular darling-pink soft tissue fragments measuring on average 0.3 x 0.2 x 0.2 cm which are submitted in toto in a single cassette labeled A1. Grossed by: JOVANNI Gaitan PA(ASCP) 02/03/2025 1:51 PM [facility] Grossed By Warren Downing 02/03/2025 1:51 PM [facility] Result Priority Level Routine 02/03/2025 1:51 PM [facility] Disclaimer By their signature above, the pathologist listed as making the Final Diagnosis certifies that they have personally reviewed the case and confirmed the diagnosis. All slides and stains were of sufficient quality to establish the diagnosis, unless otherwise stated. Due to loss of elastic tension and/or tissue shrinkage in formalin, the clinical sizes of tissue specimens may be larger than those provided in this report. 02/03/2025 1:51 PM [facility] Procedure COLONOSCOPY 02/03/2025 1:51 PM [facility] Gastrointestinal Tissue (Colon, Descending) 02/02/2025 9:02 AM EST 02/02/2025 10:21 AM EST Comment:Pre-op diagnosis: colon us Otis Peter MD LAB PATHOLOGY ORDERABLES Jerica wu Result [address] [address] * ENDOSCOPY, COLON (02/02/2025 8:32 AM EST) Narrative Transcriptions Otis Peter MD - 02/02/2025 8:32 AM EST [facility] Patient Name: Bony Parker Attending MD:: OTIS PETER MD, Procedure Date: 02/02/2025 8:32 AM Date of : 1945 Age: 79 Admit Type: Outpatient Gender: Male Room: [place] [address] Referring MD: Ree Rivera MD Exam Type: Colonoscopy Indications: High risk colon cancer surveillance: Personalhistory of colonic polyps, Last colonoscopy: November2021 Medications: Propofol per Anesthesia Procedure: Informed consent was obtained from the patientafter discussion of the indications, limitations, alternatives, benefits, and risks of the procedure. Risks specifically discussed include but are not limited to medication reactions, missed lesions, bleeding, perforation, or the need for emergent surgery. Throughout the procedure, the patient's blood pressure, pulse, end-tidal CO2, and oxygensaturations were monitored continuously. The Olympus adult variable colonoscope [id number] #1 was introduced through the anus and advanced to the terminal ileum, with identification of theappendiceal orifice and IC valve. The colonoscopy was performed without difficulty. The patient tolerated the procedure well. The quality of the bowelpreparation was good. The ileocecal valve, appendiceal orifice, and rectum were photographed. Complications: No immediate complications. Estimated blood loss:None. Findings: The terminal ileum appeared normal. Examination of the right colon was repeated in retroflexion and again in NBI. Retroflexion wasalso performed in the rectum. A few diverticula were found in the sigmoidcolon. Two sessile polyps were found in the descendingcolon. The polyps were 2 to 3 mm in size. These polypswere removed with a cold biopsy forceps. Resection and retrieval were complete. The exam was otherwise without abnormality. Impression: - The examined portion of the ileum was normal. - Diverticulosis in the sigmoid colon. - Two 2 to 3 mm polyps in the descending colon, removed with a cold biopsy forceps. Resected and retrieved. - The examination was otherwise normal. Recommendation: - Patient has a contact number available for emergencies. The signsand symptoms of potential delayed complications were discussed with the patient. Return to normal activities tomorrow. Written discharge instructions were provided to the patient. - Await pathology results. - Repeat colonoscopy in 5 years for surveillance. Otis Peter OTIS PETER MD 02/02/2025 9:10:49 AM This report has been signed electronically. Number of Addenda: 0 Note Initiated On: 02/02/2025 8:32 AM Procedure Code(s): --- Professional --- 18952, Colonoscopy, flexible; with biopsy, single or multiple --- Technical --- 61722, Colonoscopy, flexible; with biopsy, single or multiple CPT copyright 2021 [employer]. All rights reserved. The codes documented in this report are preliminary and upon taxation economist reviewmay be revised to meet current compliance requirements. Procedure Date: 02/02/2025 8:32:[address] [place] [phone] Ree Rivera MD GI PROCEDURE ORDER ANDREW Final Result from Last 3 Months Insurance [place] BLUE FORMERLY [facility] MEDICARE PPO BLUE REPLACEMENT [facility] MEDICARE PPO BLUE [facility]PLACEMENT [facility] MEDICARE PPO BLUE [facility]PLACEMENT [facility] MEDICARE PPO BLUE REPLACEMENT [facility] MEDICARE PPO BLUE REPLACEMENT [facility] MEDICARE PPO BLUE REPLACEMENT [facility] MEDICARE PPO BLUE REPLACEMENT [place] BLUE REPLACEMENT Care Teams Button Cutter Relationship Specialty Start Date End Date Ree Abraham MD PCP - General Family Medicine 01/26/19 Additional Source Comments The information contained in this document represents components of the legal health record. It is not the complete legal health record.[facility]
--- OUTSIDE RECORDS SUMMARY | 2025-02-28 16:41 | XMS_ITS | Encounter Summary ---
Author Organization [facility] Address [address] [place] [address] Phone Care Team Providers Care Oil Pumper Name Role Phone Ree Abraham MD Primary Care Prov ider Encounter Details Date Type Department Care Team (Late st Contact Info) Description 07/13/2021 Procedure Pass Echo Lab [address] [place] [address] Social History Tobacco Use Types Packs/Day Years Used Date Smoking Tobacco: Never Smokeless Tobacco: Never Sex and Gender Information Value Date Recorded Sex Assigned at Male 04/02/2024 8:08 AM EST Legal Sex Male 5:05 PM EST Gender Identity Male 04/02/2024 8:08 AM EST Sexual Orientation Not on file documented as of this encounter Plan of Treatment Not on file documented as of this encounter Visit Diagnoses Not on filedocumented in this encounter Care Teams Oil Pumper Relationship Specialty Start Date End Date Ree Abraham MD PCP - General Family Medicine 01/26/19 documented as of this encounter Additional Source Comments The information contained in this document represents components of the legal health record. It is not the complete legal health record.[facility]
--- OUTSIDE RECORDS SUMMARY | 2025-02-28 16:41 | XMS_ITS | Encounter Summary ---
Author Organization [facility] Address [address] [place] [phone] Phone Care Team Providers Care Milled Lumber Grader Name Role Phone Florentin Spencer MD Primary Care Provider Ophelia Darby MD Unavailable [phone] Mo Cisneros MD Unavailable [phone] Ike Melgoza MD Unavailable [phone] Ree Abraham MD Primary Care Prov ider Reason for Referral * Consultation (Elective) - Closed Specialty Diagnoses / Procedures Referred By Contlauryn t Referred To Contact Neurology Diagnoses Syncope, unspecified syncope type System, Provider Not In, [facility] [address] [place] [address] [address] Phone: tel: Referral ID Status Reason Start Date Expiration Date Visits Re quested Visits Authorized [id number] Closed 12/21/2018 12/22/2019 1 1 Encounter Details Date Type Department Care Team (Late st Contact Info) Description 12/21/2018 Transcribe Orders [facility] Department of Neurology [address] [place] [address], [address] Floor, [address] [place] [address] System, Provider [place] In, [place] [address] Syncope, unspecified syncope type (Primary Dx) Social History Tobacco Use Types Packs/Day Years Used Date Smoking Tobacco: Never Assessed Sex and Gender Information Value Date Recorded Sex Assigned at Male 04/02/2024 8:08 AM EST Legal Sex Male 5:05 PM EST Gender Identity Male 04/02/2024 8:08 AM EST Sexual Orientation Not on file documented as of this encounter Plan of Treatment Scheduled Referrals Name Type Priority Associated Diagnoses Orde r Schedule Ambulatory referral to [facility] Neurology Outpatient Referral Routine Syncope, Unspecified Syncope Type Ordered: 12/21/2018 documented as of this encounter Visit Diagnoses Diagnosis Syncope, unspecified syncope type- Primary documented in this encounter Care Teams Milled Lumber Grader Relationship Specialty Start Date End Date Florentin Spencer MD [address] [place] [phone] [email or web address] PCP - General 09/28/13 01/25/19 Ree Abraham MD [address] [place] [address] [email or web address] PCP - General Family Medicine 01/26/19 Ophelia Darby MD [address] [place] [address] [email or web address] Historical LMR Provider 01/15/17 2 Mo Cisneros MD [address] [place] [address] [email or web address] Historical LMR Provider 01/15/17 2 Ike Melgoza MD [address] [address] [email or web address] Historical LMR Provider 01/15/17 04/07/21 documented as of this encounter Additional Source Comments The information contained in this document represents components of the legal health record. It is not the complete legal health record.[facility]
== END 2025-02-28 13:48 | disposition home or self-care (01) ==
LOC: HO.HCS 13:03
PROVIDERS: PCP Family Medicine; Visit Provider Internal Medicine Cardiovascular Disease
DX: E78.5 Hyperlipidemia, unspecified (principal)
CPT/HCPCS: 93010; 99204

== ENCOUNTER 2025-02-28 13:02 | Outpatient (REF) | payer MEDICARE, SELFPAY ==
[2025-02-28 15:22] LABS: PSA,Total (Free>4and<10) 3.31 ng/mL (0.00-4.00)
== END 2025-02-28 13:03 | disposition home or self-care (01) ==
LOC: HO.LAB 13:02
PROVIDERS: Absent Provider Urology; PCP Family Medicine; Visit Provider Internal Medicine Cardiovascular Disease
DX: E78.5 Hyperlipidemia, unspecified (principal); R97.20 Elevated prostate specific antigen [PSA]; Z12.5 Encounter for screening for malignant neoplasm of prostate
CPT/HCPCS: 36415; 84153; 93005; 99202

== ENCOUNTER 2025-03-15 08:56 | Outpatient (AMB) | payer MEDICARE, SELFPAY ==
--- NOTE | 2025-03-15 08:57 | A.OFFVIS_ITS ---
Intake Visit Reasons: 4m/PSA SET(NOUA) Intake Note: Patient is present for Telehealth for elevated PSA Urology Rx:VIT-C Dutasteride Blood Thinners:none Imaging completed: none Labs done : 02/28/25 Total PSA 3.31 Abx allergy : SULFA Work From Home Required: No Accompanied by: Self / Same As Patient Allergies lactose (LACTOSE) Allergy (Unknown, Verified 03/15/25 08:59) DIARRHEA acetazolamide Allergy (Verified 03/15/25 08:59) Headache allopurinol Allergy (Verified 03/15/25 08:59) Diarrhea amlodipine Allergy (Verified 03/15/25 08:59) Swelling influenza virus vaccine, specific Allergy (Verified 03/15/25 08:59) Fever lisinopril Allergy (Verified 03/15/25 08:59) Unknown Sulfa (Sulfonamide Antibiotics) Allergy (Verified 03/15/25 08:59) Unknown HPI Comments Details: Bony is a pleasant male. He is a patient of Dr. Meeks. He is seen for the following urologic conditions - Elevated PSA Telemedicine Evaluation 15 min Consultation [employer] Video Follow-up from initiation of dutasteride PSA dropped from 6. to -3.3 Improved urination Space follow-up interval to six-month Lower urinary tract symptoms PSA 6.3 FATOUMATA enlarged normal Brother of prostate cancer aged 63 On dutasteride PSA 03/24 3.3 PFSH Medical History (Updated 03/15/25 @ 10:05 by Marcelino Hess MD) Elevated blood pressure reading without diagnosis of hypertension Family history of malignant melanoma Nocturia History of headache IBS (irritable bowel syndrome) Cyst of oral soft tissue Migraine Anemia Chronic tophaceous gout Gout Hyperlipidemia Surgical History H/O colonoscopy Social History (Updated 02/28/25 @ 13:12 by Radha Guadarrama CMA) Are you a primary childcare attendant to a significant other at home: No Do you presently have visiting nurse or other home services: No Alcohol intake: never Patient Tobacco Use Status: Never used Tobacco Substance Use Type: Marijuana Review of Systems Const All systems reviewed & are unremarkable except as noted in HPI and below Reports no additional complaints Resp Reports no additional complaints GI Reports no additional complaints Reports as per HPI Musc Reports no additional complaints Physical Exam Telemedicine evaluation Appropriate responses Regular breathing rate and rhythm HEENT Head: Yes normal to inspection Ears: hearing grossly normal bilaterally Eyes General: appearance normal, both eyes and all related structures Neck Neck: Yes normal visual inspection Chest Chest palpation & inspection: normal inspection of the chest Resp Effort & Inspection: normal respiratory effort and able to speak in complete sentences Telehealth Telehealth Telehealth Platform: [employer] Location of provider rendering services: practice address Location of patient: address on file Patient Identification confirmed using: Name, : Yes Telehealth method: video Patient verbally consented to treatment: Yes Patient verbally consented to billing insurance company: Yes Patient informed of any privacy concerns related to visit: Yes Assessment & Plan Assessment & Plan (1) Elevated PSA: Code(s): R97.20 - Elevated prostate specific antigen [PSA] Category: Medical (2) BPH loc w urin obs/LUTS: Code(s): N40.1 - Benign prostatic hyperplasia with lower urinary tract symptoms Category: Medical Plan Continue PSA monitoring Orders: Orders US bladder 6 Months N40.1 - Benign prostatic hyperplasia with lower urinary tract symptoms Prostate Specific Antigen 6 Months N40.1 - Benign prostatic hyperplasia with lower urinary tract symptoms Patient Instructions: This note is constructed using voice recognition software. While every effort has been made to ensure accuracy integration specialist errors may have been included. Imaging studies, laboratory and physical exam results were discussed and reviewed in detail. No major barriers to patient understanding were identified. An opportunity to ask questions regarding the treatment plan was provided. All questions were answered. The patient expressed understanding and agreement with the above treatment plan. The patient is aware they should contact our office by phone for worsening of their current condition or the appearance of new urologic symptoms. Compliance is encouraged with any medications and followup testing that is ordered. It is a privilege to participate in the urologic care of your patient. If you have any questions or concerns regarding treatment for the above conditions, or other urologic issues, please do not hesitate to contact me. The office telephone contact is [phone]. Sincerely, Dr Marcelino Hess MD, RE[facility] - Urology Compassionate Specialist Care for the Genitourinary System Coding Level of Care Code Est Pt Level 3 (06387) Diagnoses Elevated PSA R97.20 BPH loc w urin obs/LUTS N40.1
--- OUTSIDE RECORDS SUMMARY | 2025-03-15 09:54 | XMS_ITS | Encounter Summary ---
Author Organization [facility] Address [address] [facility] [address] [place] [address] Phone Care Team Providers Care Certifed Refrigeration Operator Name Role Phone Florentin Spencer MD Primary Care Provider [phone] Ophelia Darby MD Unavailable [phone] Mo Cisneros MD Unavailable [phone] Ike Melgoza MD Unavailable [phone] Ree Abraham MD Primary Care Prov ider Reason for Referral * Consultation (Elective) - Closed Specialty Diagnoses / Procedures Referred By Contlauryn t Referred To Contact Neurology Diagnoses Syncope, unspecified syncope type System, Provider Not In, [facility] [address] [place] [address] [address] Phone: tel: Referral ID Status Reason Start Date Expiration Date Visits Re quested Visits Authorized [id number] Closed 12/21/2018 12/22/2019 1 1 Encounter Details Date Type Department Care Team (Late st Contact Info) Description 12/21/2018 Transcribe Orders [facility] Department of Neurology [address] [place] [address], 8th Floor, [address] [place] [address] System, Provider [place] In, [place] [address] Syncope, unspecified syncope type (Primary Dx) Social [...] Diagnoses Orde r Schedule Ambulatory referral to [facility] Neurology Outpatient Referral Routine Syncope, Unspecified Syncope Type Ordered: 12/21/2018 documented as of this encounter Visit Diagnoses Diagnosis Syncope, unspecified syncope type- Primary documented in this encounter Care Teams Certifed Refrigeration Operator Relationship Specialty Start Date End Date Florentin Spencer MD [address] [place] [address] [email or web address] PCP - General 09/28/13 01/25/19 Ree Abraham MD [address] [place] [address] [email or web address] PCP - General Family Medicine 01/26/19 Ophelia Darby MD [address] [place] [address] [email or web address] Historical LMR Provider 01/15/17 2 Mo Cisneros MD [address] [place] [address] [email or web address] Historical LMR Provider 01/15/17 2 Ike Melgoza MD [address] [address] [email or web address] Historical LMR Provider 01/15/17 04/07/21 documented as of this encounter Additional Source Comments The information contained in this document represents components of the legal health record. It is not the complete legal health record.[facility]
--- OUTSIDE RECORDS SUMMARY | 2025-03-15 09:54 | XMS_ITS | Encounter Summary ---
Author Organization [facility] Address [address] [facility] [address] [place] [address] Phone Care Team Providers Care Motor Vehicle Licence Examiner Name Role Phone Ree Abraham MD Primary Care Prov ider Encounter Details Date Type Department Care Team (Late st Contact Info) Description 02/02/2025 Procedure Pass [facility] Endoscopy Admitting Dept Virtual Department 30 [place] [address] Social History Tobacco Use Types Packs/Day Years [...] on filedocumented in this encounter Care Teams Motor Vehicle Licence Examiner Relationship Specialty Start Date End Date Ree Abraham MD [email or web address] PCP - General Family Medicine 01/26/19 documented as of this encounter Additional Source Comments The information contained in this document represents components of the legal health record. It is not the complete legal health record.[facility]
--- OUTSIDE RECORDS SUMMARY | 2025-03-15 09:54 | XMS_ITS | Encounter Summary ---
Author Organization [facility] Address [address] [facility] [address] [place] [address] Phone Care Team Providers Care Keyboard Action Assembler Name Role Phone Florentin Spencer MD Primary Care Provider [phone] Ophelia Darby MD Unavailable [phone] Mo Cisneros MD Unavailable [phone] Ike Melgoza MD Unavailable [phone] Ree Abraham MD Primary Care Prov ider Encounter Details Date Type Department Care Team (Late st Contact Info) Description 04/15/2018 Ancillary Orders Virtual Department 30 [place] [address] Nino Bowden MD [address] [place] [address] CSF leak Social History Tobacco Use Types [...] system documented in this encounter Care Teams Keyboard Action Assembler Relationship Specialty Start Date End Date Florentin Spencer MD [address] [place] [address] [email or web address] PCP - General 09/28/13 01/25/19 Ree Abraham MD [address] [address] PCP - General Family Medicine 01/26/19 Ophelia Darby MD [address] [place] [address] [email or web address] Historical LMR Provider 01/15/17 2 Mo Cisneros MD [address] [place] [address] [email or web address] Historical LMR Provider 01/15/17 2 Ike Melgoza MD [address] [address] [email or web address] Historical LMR Provider 01/15/17 04/07/21 documented as of this encounter Additional Source Comments The information contained in this document represents components of the legal health record. It is not the complete legal health record.[facility]
--- OUTSIDE RECORDS SUMMARY | 2025-03-15 09:54 | XMS_ITS | Encounter Summary ---
Author Organization [facility] Address [address] [facility] [address] [place] [address] Phone Care Team Providers Care Bell Valet Name Role Phone Ree Abraham MD Primary Care Prov ider Encounter Details Date Type Department Care Team (Late st Contact Info) Description 12/19/2021 Procedure Pass [facility] Endoscopy Admitting Dept Virtual Department 30 [place] [address] Social History Tobacco Use Types Packs/Day Years [...] on filedocumented in this encounter Care Teams Bell Valet Relationship Specialty Start Date End Date Ree Abraham MD PCP - General Family Medicine 01/26/19 documented as of this encounter Additional Source Comments The information contained in this document represents components of the legal health record. It is not the complete legal health record.[facility]
--- OUTSIDE RECORDS SUMMARY | 2025-03-15 09:55 | XMS_ITS | Encounter Summary ---
Author Organization [facility] Address [address] [facility] [address] [place] [address] Phone Care Team Providers Care Cane Flume Feeding Machine Operator Name Role Phone Ree Abraham MD Primary Care Prov ider Encounter Details Date Type Department Care Team (Late st Contact Info) Description 07/13/2021 Procedure Pass [facility] [address] [place] [address] Social History Tobacco Use Types Packs/Day Years [...] on filedocumented in this encounter Care Teams Cane Flume Feeding Machine Operator Relationship Specialty Start Date End Date Ree Abraham MD PCP - General Family Medicine 01/26/19 documented as of this encounter Additional Source Comments The information contained in this document represents components of the legal health record. It is not the complete legal health record.[facility]
--- OUTSIDE RECORDS SUMMARY | 2025-03-15 09:55 | XMS_ITS | Patient Health Record ---
Author Organization [facility] Address [address] [place] [address] Care Team Providers Care Relay Record Clerk Name Role Phone Mj Hewitt Primary Care [...] check* 02/14/2013 Active GLUCOSAMINE & CHONDROITIN CAP [phone] MG 0 1 qam *please review for [...] Q10 50 MG SOFTGEL 0 100 mg qam; Duration: 0 *please review for potential update for [...] End Date BCBS MEDICARE PPO [address] [place], [place] [id number] Bony Parker Self - patient is the insured
== END 2025-03-15 11:20 | disposition home or self-care (01) ==
LOC: HO.HUSH 08:56
PROVIDERS: PCP Family Medicine; Visit Provider Urology
DX: R97.20 Elevated prostate specific antigen [PSA] (principal); N40.1 Benign prostatic hyperplasia with lower urinary tract symptoms
CPT/HCPCS: 99213

== ENCOUNTER → 2025-03-15 08:56 | Outpatient (BNVA) | payer MEDICARE, SELFPAY | PROVIDERS: PCP Family Medicine; Visit Provider Urology | DX: R97.20 Elevated prostate specific antigen [PSA] (principal); N40.1 Benign prostatic hyperplasia with lower urinary tract symptoms | CPT/HCPCS: 99212 ==

== ENCOUNTER 2025-03-30 12:35 | Outpatient (REF) | payer MEDICARE, SELFPAY ==
[2025-03-30 13:00] LABS: MANUAL DIFF FLAG NO
[2025-03-30 13:38] LABS: Hematocrit 42.4 % (42.0-52.0); Hemoglobin 14.6 g/dl (14.0-18.0); Imm Gran Abs Auto 0.03 X10*3/uL (0.00-0.03); Imm Gran Pct Auto 0.4 % (0.0-0.4); Lymphocytes Absolute Auto 3.6 X10*3/uL (1.2-4.9); Mean Corpuscular HGB Conc 34.4 g/dl (31.0-36.0); Mean Corpuscular Hemoglobin 29.5 pg (27.0-33.0); Mean Corpuscular Volume 85.7 fL (80.0-98.0); NRBC Abs Auto 0.000 X10*3/uL (0.0-0.012); NRBC Pct Auto 0.0 /100WBC (0.0-0.2); Platelet Count 266 X10*3/uL (160-400); Red Blood Count 4.95 X10*6/uL (4.60-5.80); White Blood Count 8.1 X10*3/uL (4.8-10.8)
[2025-03-30 14:09] LABS: Alanine Aminotransferase 32 U/L (0-40); Aspartate Amino Transferase 26 U/L (5-37); Estimated Glomerular Filt Rate > 60; Uric Acid 9.0 mg/dL (3.4-7.0)
--- OUTSIDE RECORDS SUMMARY | 2025-03-30 14:11 | XMS_ITS | Encounter Summary ---
Author Organization [facility] Address [address] [facility] [address] [place] [address] Phone Care Team Providers Care Mortgage Underwriter Name Role Phone Ree Abraham MD Primary Care Prov ider Encounter Details Date Type Department Care Team (Late st Contact Info) Description 12/19/2021 Procedure Pass [facility] Endoscopy Admitting Dept Virtual Department 30 [place] [address] Social History Tobacco Use Types Packs/Day Years [...] on filedocumented in this encounter Care Teams Mortgage Underwriter Relationship Specialty Start Date End Date Ree Abraham MD PCP - General Family Medicine 01/26/19 documented as of this encounter Additional Source Comments The information contained in this document represents components of the legal health record. It is not the complete legal health record.[facility]
--- OUTSIDE RECORDS SUMMARY | 2025-03-30 14:11 | XMS_ITS | Encounter Summary ---
Author Organization [facility] Address [address] [facility] [address] [place] [address] Phone Care Team Providers Care Medicare Coordinator Name Role Phone Ree Abraham MD Primary Care Prov ider Encounter Details Date Type Department Care Team (Late st Contact Info) Description 02/02/2025 Procedure Pass [facility] Endoscopy Admitting Dept Virtual Department 30 [place] [address] Social History Tobacco Use Types Packs/Day Years [...] on filedocumented in this encounter Care Teams Medicare Coordinator Relationship Specialty Start Date End Date Ree Abraham MD [email or web address] PCP - General Family Medicine 01/26/19 documented as of this encounter Additional Source Comments The information contained in this document represents components of the legal health record. It is not the complete legal health record.[facility]
--- OUTSIDE RECORDS SUMMARY | 2025-03-30 14:11 | XMS_ITS | Encounter Summary ---
Author Organization [facility] Address [address] [facility] [address] [place] [address] Phone Care Team Providers Care Patient Manager Name Role Phone Florentin Spencer MD Primary Care Provider Ophelia Darby MD Unavailable [phone] Mo Cisneros MD Unavailable [phone] Ike Melgoza MD Unavailable [phone] Ree Abraham MD Primary Care Prov ider Reason for Referral * Consultation (Elective) - Closed Specialty Diagnoses / Procedures Referred By Contlauryn t Referred To Contact Neurology Diagnoses Syncope, unspecified syncope type System, Provider Not In, [facility] [address] [place] [address] [address] Phone: tel: Referral ID Status Reason Start Date Expiration Date Visits Re quested Visits Authorized [id number] Closed 12/21/2018 12/22/2019 1 1 Encounter Details Date Type Department Care Team (Late st Contact Info) Description 12/21/2018 Transcribe Orders [facility] [address] [place] [address], 8th Floor, [address] [place] [address] System, Provider [place] In, [place] [address] Syncope, unspecified syncope type (Primary Dx) Social [...] Diagnoses Orde r Schedule Ambulatory referral to [facility] Neurology Outpatient Referral Routine Syncope, Unspecified Syncope Type Ordered: 12/21/2018 documented as of this encounter Visit Diagnoses Diagnosis Syncope, unspecified syncope type- Primary documented in this encounter Care Teams Patient Manager Relationship Specialty Start Date End Date Florentin Spencer MD [address] [place] [address] [email or web address] PCP - General 09/28/13 01/25/19 Ree Abraham MD [address] [place] [address] [email or web address] PCP - General Family Medicine 01/26/19 Ophelia Darby MD [address] [place] [address] [email or web address] Historical LMR Provider 01/15/17 2 Mo Cisneros MD [address] [place] [address] [email or web address] Historical LMR Provider 01/15/17 2 Ike Melgoza MD [address] [address] Historical LMR Provider 01/15/17 04/07/21 documented as of this encounter Additional Source Comments The information contained in this document represents components of the legal health record. It is not the complete legal health record.[facility]
--- OUTSIDE RECORDS SUMMARY | 2025-03-30 14:11 | XMS_ITS | Encounter Summary ---
Author Organization [facility] Address [address] [facility] [address] [place] [address] Phone Care Team Providers Care Sock Turner Name Role Phone Florentin Spencer MD Primary Care Provider [phone] Ophelia Darby MD Unavailable [phone] Mo Cisneros MD Unavailable [phone] Ike Melgoza MD Unavailable [phone] Ree Abraham MD Primary Care Prov ider Encounter Details Date Type Department Care Team (Late st Contact Info) Description 04/15/2018 Ancillary Orders Virtual Department 30 [place] [address] Nino Bowden MD [address] [place] [address] CSF leak Social History Tobacco Use Types [...] system documented in this encounter Care Teams Sock Turner Relationship Specialty Start Date End Date Florentin Spencer MD [address] [place] [address] [email or web address] PCP - General 09/28/13 01/25/19 Ree Abraham MD [address] [address] PCP - General Family Medicine 01/26/19 Ophelia Darby MD [address] [place] [address] [email or web address] Historical LMR Provider 01/15/17 2 Mo Cisneros MD [address] [place] [address] [email or web address] Historical LMR Provider 01/15/17 2 Ike Melgoza MD [address] [address] [email or web address] Historical LMR Provider 01/15/17 04/07/21 documented as of this encounter Additional Source Comments The information contained in this document represents components of the legal health record. It is not the complete legal health record.[facility]
--- OUTSIDE RECORDS SUMMARY | 2025-03-30 14:12 | XMS_ITS | Patient Health Record ---
Author Organization [facility] Address [address] [place] [address] Care Team Providers Care Purification Director Name Role Phone Mj Hewitt Primary Care [...] check* 02/14/2013 Active GLUCOSAMINE & CHONDROITIN CAP [phone] MG 0 1 qam *please review for [...] End Date BCBS MEDICARE PPO [address] [place], [place] [id number] Bony Parker Self - patient is the insured
--- OUTSIDE RECORDS SUMMARY | 2025-03-30 14:12 | XMS_ITS | Encounter Summary ---
Author Organization [facility] Address [address] [facility] [address] [place] [address] Phone Care Team Providers Care Director Counseling Bureau Name Role Phone Ree Abraham MD Primary Care Prov ider Encounter Details Date Type Department Care Team (Late st Contact Info) Description 07/13/2021 Procedure Pass [facility] [address] [place] [address] Social History Tobacco Use Types Packs/Day Years [...] on filedocumented in this encounter Care Teams Director Counseling Bureau Relationship Specialty Start Date End Date Ree Abraham MD PCP - General Family Medicine 01/26/19 documented as of this encounter Additional Source Comments The information contained in this document represents components of the legal health record. It is not the complete legal health record.[facility]
--- OUTSIDE RECORDS SUMMARY | 2025-03-30 14:12 | XMS_ITS | Clinical Summary ---
Author Organization [facility] Address [address] [facility] [address] [place] [address] Phone Care Team Providers Care User Experience Designer Name Role Phone Ree Abraham MD Primary [...] 3 (three) times a day. Active omega 6-yyg-jen-fish oil 1,000 mg (120 mg-180 mg) Cap [...] mouth daily. Active vit B12/intrinsic fact/folate (INTRINSI [id number] ORAL) Take by mouth. Active Active Problems Problem Noted Date Diagnosed Date Essential hypertension 08/12/2022 Assessment & Plan (08/12/2022 12:55 PM EDT): His BP in office today is elevated, consistent with his home readings. Believes that a lot of his medical issues are secondary to [place] [facility] [place] He has had numerous intolerances to medications [...] Surgery [facility] Endoscopy Admitting Dept Virtual Department [address] [place] [address] Otis Peter MD COLONOSCOPY 02/02/2025 8:39 AM EST Anesthesia Event [facility]oscopy Admitting Dept Virtual Department [address] [place] [address] Geronimo Wellington MD, RENAY 02/02/2025 8:13 AM EST - 02/02/2025 10:17 AM EST Hospital Encounter [facility] Admitting Dept Virtual Department [address] [place] [address] Otis Peter MD Discharge Disposition: Home or Self Care 02/02/2025 Procedure Pass [facility] Endoscopy Admitting Dept Virtual Department [address] [place] [address] from Last 3 Months Immunizations Immunization Administration [...] TISSUE EXAM Routine 02/02/2025 9:02 AM EST MA COLSC FLX W/RMVL OF TUMOR POLYP LESION SNARE TQ 02/02/2025 8:38 AM EST colon MA COLONOSCOPY W/BIOPSY SINGLE/MULTIPLE 02/02/2025 8:38 AM EST colon MA COLONOSCOPY FLX DX W/COLLJ SPEC WHEN PFRMD 02/02/2025 8:38 AM EST colon ENDOSCOPY, COLON 02/02/2025 8:32 AM EST from Last 3 Months Results * Tissue Exam (02/02/2025 9:02 AM EST) Final Pathologic Diagnosis A. COLON, DESCENDING; FORCEP X 2; POLYPECTOMY: Adenomatous polyp fragments 02/03/2025 1:51 PM EST [facility] at 1351 EST Clinical History Pre-op diagnosis: colon 02/03/2025 1:51 PM [facility] Gross Description A. COLON, DESCENDING; FORCEP X 2: Received in formalin are 3 irregular darling-pink soft tissue fragments measuring on average 0.3 x 0.2 x 0.2 cm which are submitted in toto in a single cassette labeled A1. Grossed by: JOVANNI Gaitan PA(ASCP) 02/03/2025 1:51 PM [facility] Grossed By Warren Downing 02/03/2025 1:51 PM [facility] Result Priority Level Routine 02/03/2025 1:51 PM [facility] Disclaimer By their signature above, the [...] provided in this report. 02/03/2025 1:51 PM [facility] Procedure COLONOSCOPY 02/03/2025 1:51 PM [facility] Gastrointestinal Tissue (Colon, Descending) 02/02/2025 9:02 AM EST 02/02/2025 10:21 AM EST Comment:Pre-op diagnosis: colon us Otis Peter MD LAB PATHOLOGY ORDERABLES Jerica wu Result [address] [address] * ENDOSCOPY, COLON (02/02/2025 8:32 AM EST) Narrative Transcriptions Otis Peter MD - 02/02/2025 8:32 AM EST [facility] Patient Name: Bony Parker Attending MD:: OTIS PETER MD, Procedure Date: 02/02/2025 8:32 AM Date of : 1945 Age: 79 Admit Type: Outpatient Gender: Male Room: [place] [address] Referring MD: Ree Rivera MD Exam Type: [...] monitored continuously. The Olympus adult variable colonoscope [id number] #1 was introduced through the anus and [...] 8:32 AM Procedure Code(s): --- Professional --- 90060, Colonoscopy, flexible; with biopsy, single or multiple --- Technical --- 37872, Colonoscopy, flexible; with biopsy, single or multiple CPT copyright 2021 [employer]. All rights reserved. The codes documented in this report are preliminary and upon green chain marker reviewmay be revised to meet current compliance requirements. Procedure Date: 02/02/2025 8:32:[address] [place] [address] Ree Rivera MD GI PROCEDURE ORDER ANDREW Final Result from Last 3 Months Insurance [place]IC[place] P[place] BLUE [facility] MEDICARE PPO BLUE REPLACEMENT [facility] MEDICARE PPO BLUE REPLACEMENT [facility] MEDICARE PPO [facility]UE REPLACEMENT [facility] MEDICARE PPO BLUE REPLACEMENT [facility] MEDICARE PPO BLUE REPLACEMENT [facility] MEDICARE PPO BLUE REPLACEMENT [facility] MEDICARE PPO BLUE REPLACEMENT [place] BLUE REPLACEMENT Care Teams User Experience Designer Relationship Specialty Start Date End Date Ree Abraham MD PCP - General Family Medicine 01/26/19 Additional Source Comments The information contained in this document represents components of the legal health record. It is not the complete legal health record.[facility]
== END 2025-03-30 12:36 | disposition home or self-care (01) ==
LOC: HO.LAB 12:35
PROVIDERS: PCP Family Medicine; Visit Provider Internal Medicine Rheumatology
DX: Z79.899 Other long term (current) drug therapy (principal)
CPT/HCPCS: 36415; 82565; 84450; 84460; 84550; 85025